=== PATIENT | female | born 1955 | race Caucasian/White ===

== ENCOUNTER → 2016-06-02 | Day surgery (SDC) | payer OTHER ==
[~2016-06-02] MED LIST: ACETAMINOPHEN PO; ADVAIR 100-501 EAC1 INH; ADVAIR 100-501 EAC1 PO/SL; ADVAIR 100-501 EACH INH; ADVAIR 1001 DISK W/D PO; ADVAIR 2501 DISK W/D PO; ASPIRIN EC81 M1 PO; ASPIRIN PO; BAYER CHEWABLE81 MG PO; CARAFATE1 G PO; CARDIZEM PO; CERTAGEN PO; COLACE PO; CRESTOR PO; CYMBALTA PO; DEPAKOTE ER PO; DEPAKOTE PO; DEPAKOTE250 MG PO; DICYCLOMINE HCL20 MG PO; DILTIAZEM 24HR120 M1 PO; DOLOPHINE HCL5 MG PO; DULOXETINE HCL60 MG PO; ESTRADIOL-NORE1 EAC1 PO; ESTRADIOL-NORE1 EACH PO; FIORINAL 50-321 EACH PO; HYDROCODON-ACE1 EAC9 PO; KADIAN20 MG PO; LEXAPRO PO; LYRICA75 MG PO; MAXALT MLT10 MG/TAB PO; METHADOSE5 MG PO; METRONIDAZOLE PO; MIRALAX255 GM PO; NORCO 10-325 TA1 TAB PO; NORCO PO; NORCO1 TAB 10/3 PO; OMEPRAZOLE40 MG PO; PANTOPRAZOLE SO40 MG PO; PERCOCET 5/321 UDTAB PO; PHENERGAN25 M1 PO; PLAVIX PO; PRAVACHOL80 MG PO; PRAVASTATIN SOD40 MG PO; PROTONIX PO; RELPAX40 MG PO; STADOL; STADOL NASAL SPRAY; STADOL NS25 MG; STADOL NS25 MG IH; TOPAMAX; TOPAMAX PO; TOPIRAMATE50 MG PO; TRAZODONE PO; VIMPAT 100 MG; VITAMIN D250000 UNIT PO; [UNRECOGNIZED DRUG - OTHER]
--- NOTE | ~2016-06-02 | OR ---
Unit #: [id number] #: [id number] Patient: MADAN FLORES [id number] [address] [address] [id number] O MR#: [id number] NAME: MADAN FLORES ROOM: Date of Procedure: 06/02/2016 Admission Date: 06/02/2016 Surgeon: Rodri Vazquez M.D. : 1955 Attending Physician: Rodri Vazquez M.D. Primary Care Physician: Mark Ball M.D. OPERATIVE REPORT JOB NOTE: FIRST NAME UNDECIPHERABLE. PROCEDURE PERFORMED Esophagogastroduodenoscopy with biopsy. INDICATIONS FOR PROCEDURE The patient has significant epigastric and right upper quadrant pain. MEDICATIONS Monitored anesthesia. POSTOPERATIVE FINDINGS 1. Multiple gastric antral ulcers, 4 to 6 mm, superficial biopsies taken. 2. Normal duodenum and distal duodenum. 3. Gastritis. 4. Normal esophagus. PLAN PPI therapy. Avoid NSAIDs. Follow up on the pathology report. DESCRIPTION OF PROCEDURE The patient was explained of the procedure, risks, and benefits along with the risks and benefits of anesthesia. She was brought to the endoscopy room. Propofol anesthesia was given. Bite block was placed. The scope was passed down the mouth into esophagus, stomach, duodenum, and distal duodenum. Findings as described. Biopsies taken. Gently, I pulled the scope out. She tolerated it well. Dictated by... Joshua Leyva/yuliya TD: 06/03/2016 04:47 JOB #: [id number] Unit #: [id number] #: [id number] Patient: MADAN FLORES OPERATIVE REPORT X Rodri Vazquez MD X PROCEDURE OPERATIVE NOTE
== END | disposition home or self-care (01) ==
LOC: COPS 10:14
DX: K29.50 Unspecified chronic gastritis without bleeding (principal); I10 Essential (primary) hypertension; J45.909 Unspecified asthma, uncomplicated; D64.9 Anemia, unspecified; K21.9 Gastro-esophageal reflux disease without esophagitis; Z87.01 Personal history of pneumonia (recurrent); Z87.442 Personal history of urinary calculi; Z88.8 Allergy status to other drugs, medicaments and biological substances; Z79.899 Other long term (current) drug therapy; Z90.49 Acquired absence of other specified parts of digestive tract; Z90.710 Acquired absence of both cervix and uterus; Z98.51 Tubal ligation status; Z98.890 Other specified postprocedural states
CPT/HCPCS: 88305; 88312

== ENCOUNTER 2016-08-07 11:47 | Inpatient (IN) | payer OTHER ==
--- NOTE | ~2016-08-07 | CT2 ---
[facility] A Service [facility] RADIOLOGY TEXT RESULTS PATIENT: MADAN FLORES LOCATION: [facility] 309- : 59 UNIT #: [id number] AGE: [address]: FRANCISCO MONTGOMERY MD SEX: F ORDER DR: [id number] [facility]. [place], [place] [address] [id number] MR#: [id number] Acc #: [id number] NAME: MADAN FLORES. : 1955 SEX: F STUDY DATE/TIME: 08/07/2016 UNIT: [facility] ROOM: STUDY DESCRIPTION: CT Abd and Pelv W Cont Attending Physician: Sanaz Goodman M.D. Ordering Physician: Sanaz Goodman M.D. Primary Care Physician: Mark Ball M.D. MEDICAL IMAGING REPORT This report is preliminary unless electronic signature is present EXAM CT abdomen and pelvis with contrast 08/07/2016 11 o'clock hours HISTORY 60-year-old woman with [id number] abdominal pain, passing blood per rectum today. COMPARISON CT abdomen 11/02/[address] images were obtained from the lung bases through the pubic symphysis with intravenous contrast only. Sagittal and coronal reconstructions were performed. Contrast was Isovue-370 100 mL IV. Total DLP is 699 mGy-cm. The CT exam was performed with one or more of the following radiation dose reduction techniques: automatic exposure control, adjustment of mA and/or kV according to patient size, and iterative reconstruction. FINDINGS Images through the lung bases are clear. There are no effusions. The distal esophagus is normal. Images through the abdomen are compromised by the lack of oral contrast. The liver and spleen appear normal. There is mild intra and extrahepatic bile duct dilatation. Patient has had cholecystectomy since the CT of 11/02/2015. Common bile duct measures up to 1.3 cm previously 0.6 cm. This dilatation can be seen normally in post cholecystectomy patients but correlation with lab values is recommended. The pancreas and pancreatic duct are normal. The adrenal glands are normal. [facility] A Service of [facility] & [facility] RADIOLOGY TEXT RESULTS PATIENT: MADAN FLORES LOCATION: A 309-01 : [birth year] UNIT #: [id number] AGE: [address]: FRANCISCO MONTGOMERY MD SEX: F ORDER DR: There is cortical thinning and scarring right greater than left kidney with nonobstructing intrarenal calcifications in the right kidney unchanged. There is no ureteral calculus seen. I believe there is a stable calcification in the lower pole left kidney partially obscured by contrast on this exam. Pelvic phleboliths are unchanged. The stomach is somewhat contracted and unopacified but does appear normal. There is no small bowel distension or small bowel wall thickening. The terminal ileum is normal. The appendix is surgically absent. The right colon appears normal. There is suggested wall thickening of the mid transverse colon and diffusely through the descending colon with question thickening at the sigmoid colon. There is no fluid, abscess or perforation. The findings suggest an infectious or inflammatory colitis which spares the rectum. There is no abscess or adenopathy. IMPRESSION 1. The patient has wall thickening of the colon fairly contiguously from the mid transverse colon to the sigmoid colon suggesting an infectious or inflammatory colitis which spares the rectum. There is no marsha colonic fluid or abscess or evidence of perforation. 2. The patient has had cholecystectomy since the CT of 11/02/2015. There is new intra and extrahepatic bile duct dilatation without definite stone seen. This can be seen in post cholecystectomy patients as a normal finding. Suggest correlation with lab values, however. 3. There is scarring in both kidneys, right worse than left with no change in intrarenal nonobstructing stones. No ureteral calculi are seen. Dictated by... Gianna Cordova M.D. THIS IS AN ELECTRONICALLY VERIFIED REPORT Gianna Cordova M.D. at 08/07/2016 2:30 PM ETHAN/pearl TD: 08/07/2016 11:47 JOB #: [id number] MEDICAL IMAGING REPORT Page 1 of 1 COPY
--- NOTE | ~2016-08-07 | CO ---
Unit #: [id number] #: [id number] Patient: MADAN HERNANDEZ [id number] [facility]. [place], [place] [address] [id number] I MR#: [id number] NAME: MADAN HERNANDEZ ROOM: 309 Age: 60 Sex: F Admission Date: 08/07/2016 : 1955 Attending Physician: Autumn Navarro M.D. Primary Care Physician: Mark Ball M.D. Consultation Date: 08/07/2016 CONSULTATION REPORT PRIMARY CARE PHYSICIAN Dr. Ball. REASON FOR CONSULTATION GI bleeding. HISTORY OF PRESENTING ILLNESS Ms. Hernandez is a 60-year-old female, presented with acute abdominal pain and blood in the stool that started within the last 24 hours. She has several bowel movements with bright red blood and clot within a period of few hours of starting of the symptoms. She has never had any similar problems in the past. She denies any new medications. She has significant nausea, but no vomiting. She denies any fever or chills. Pain was generalized, more so in the upper abdomen and with some radiation to the back. PAST MEDICAL HISTORY Significant for hypertension, depression, recent history of peptic ulcer disease, chronic pain syndrome and fibromyalgia, history of colon polyps in 2013, history of gastric ulcers in 2016. SOCIAL HISTORY Denies alcohol. Denies drug abuse. Nonsmoker. FAMILY HISTORY No history of colon cancer. ALLERGIES To Lipitor, naproxen, and Dilantin. MEDICATIONS AT HOME Lyrica, Pravachol, Cymbalta, and Fiorinal. REVIEW OF SYSTEMS A complete review of systems was done, which is unremarkable other than as mentioned above. PHYSICAL EXAMINATION GENERAL: Appears uncomfortable, in no acute distress. VITAL SIGNS: Stable. Temperature 98, pulse 68, respirations 20, blood pressure 142/66. HEENT: Pupils equal and reactive. Sclerae anicteric. Oral mucosa moist. NECK: No JVD. No lymphadenopathy. CHEST: Clear to auscultation bilaterally. Unit #: [id number] #: [id number] Patient: MADAN HERNANDEZ CARDIOVASCULAR: Regular rate and rhythm. No murmurs. ABDOMEN: Significant tenderness in the upper abdomen. No guarding. No rebound. No organomegaly or ascites. EXTREMITIES: Without clubbing, cyanosis, or edema. NEUROLOGIC: Intact. SKIN: Warm and dry. DIAGNOSTIC STUDIES LABORATORY RESULTS: Hemoglobin of 14.4, platelet count 228. Alkaline phosphatase 104, ALT 41. Ammonia level 85. Amylase and lipase normal. AST 31. IMAGING STUDIES: CT scan shows significant thickening of transverse, descending, and sigmoid colon. CBD dilated at 1.3 cm. The patient had a cholecystectomy last year. ASSESSMENT AND PLAN 1. The patient with acute abdominal pain, associated with blood in the stool, suggestive of possible ischemic colitis. Other colitis cannot be ruled out. At this time, we will get stool studies and plan on giving her symptomatic treatment, IV fluids, and broad-spectrum antibiotics. Once the symptoms come down, colonoscopy will be planned. 2. Dilated progressive common bile duct dilation along with LFT abnormality. Possible distal common bile duct obstruction. The patient does not drink alcohol. Has no history of hepatitis C. May need ERCP versus MRCP. We will wait until the acute symptoms subside. 3. History of peptic ulcer disease. PPIs to continue. Repeat upper endoscopy for surveillance has been planned. Thank you Dr. Jeffries for this interesting consult. We will follow along. Dictated by... Joshua Leyva/yuliya TD: 08/07/2016 19:59 JOB #: [id number] CONSULTATION REPORT Page 1 of 1 X Rodri Vazquez MD X CONSULTATION REPORT
--- NOTE | ~2016-08-07 | DS ---
Unit #: [id number] #: [id number] Patient: MADAN FLORES [id number] [address] [address] [id number] I MR#: [id number] NAME: MADAN FLORES. ROOM: 309 Age: 60 Sex: F Admission Date: 08/07/2016 : 1955 Discharge Date: 08/10/2016 Attending Physician: Autumn Navarro M.D. Primary Care Physician: Mark Ball M.D. DISCHARGE SUMMARY DISCHARGE DIAGNOSES 1. Acute colitis. 2. Low rectal bleed secondary to acute colitis. 3. Sepsis secondary to colitis, resolved. 4. History of migraine. 5. Hypertension. 6. Depression. 7. Hyperlipidemia. 8. Chronic pain. 9. Fibromyalgia. CONSULTANTS Dr. Vazquez. PROCEDURES PERFORMED None. DIAGNOSTIC DATA LABORATORY: Sodium 142, potassium 4.3, creatinine 0.8. Liver enzymes normal. Albumin 3.8, white blood cell count 4.4, hemoglobin 12.8, platelets 200. C-diff negative. Blood cultures negative. Lactic acid 1.1. Lactic acid on admission 2.1. ALLERGIES Phenytoin, atorvastatin. DISCHARGE MEDICATIONS 1. Lyrica 75 mg p.o. b.i.d. 2. Cymbalta 60 mg daily. 3. Pravachol 80 mg daily. 4. Fiorinal 1 capsule p.o. daily for migraine. 5. Flagyl 500 mg t.i.d. for 1 week. 6. Protonix 40 mg p.o. daily. HOSPITAL COURSE The patient is a 60-year-old admitted because of abdominal pain. Acute colitis: The patient was seen by Dr. Vazquez. The patient was started on Rocephin and Flagyl. Currently pain is better. Able to tolerate diet okay. The patient will be discharged on Flagyl for one week according to Dr. Vazquez's recommendations. He will follow with Dr. Vazquez in three weeks time for followup, if needed colonoscopy as an outpatient. Unit #: [id number] #: [id number] Patient: MADAN FLORES GI bleed: Secondary to acute colitis, resolved. Sepsis: From colitis. Resolved. Hypertension: Mildly elevated. The patient is not on medications at home. Her blood pressure was elevated one time only, likely from pain. I will ask her to follow up with her primary care physician and start medication for it if needed, if chronically elevated. DISPOSITION Discharge home. FOLLOWUP 1. Follow up with family physician in one week time. 2. Follow up with Dr. Vazquez in two to three weeks time. Dictated by... Joshua Miranda/gz TD: 08/10/2016 11:48 JOB #: [id number] CC: Mark Ball M.D. DISCHARGE SUMMARY Page 1 of 1 X Autumn Navarro MD X DISCHARGE SUMMARY
--- NOTE | ~2016-08-07 | HP ---
Unit #: [id number] #: [id number] Patient: MADAN FLORES [id number] [address] [place], [place] [address] [id number] E MR#: [id number] NAME: MADAN FLORES ROOM: Age: 60 Sex: F Admission Date: 08/07/2016 : 1955 Attending Physician: Sanaz Goodman M.D. Primary Care Physician: Mark Ball M.D. HISTORY AND PHYSICAL CHIEF COMPLAINT GI bleed. HISTORY OF PRESENT ILLNESS The patient is a 60-year-old female with a history of hypertension, migraine headache, depression, chronic pain syndrome, brought to the emergency room complaining of the rectal bleeding. The patient stated the bleeding started earlier this morning and is associated with bright red bleed to dark red blood on the stools. The patient also complains of abdominal pain that is stabbing in nature and severe intensity and radiating from the left upper quadrant to the right upper quadrant. The patient also complains of nausea and vomiting associated with the abdominal pain. The patient had a CT of the abdomen and pelvis that showed large bowel wall thickening from the transverse to the sigmoid colon and is concerning for colitis likely secondary to infectious versus inflammatory. The patient is being admitted for the above reasons. The patient's lactic acid is back up to 2.1. PAST MEDICAL HISTORY History of migraine, hypertension, depression, hyperlipidemia, chronic pain syndrome, fibromyalgia. PAST SURGICAL HISTORY History of colonoscopy seven years ago with the polyp removed, right elbow surgery, appendectomy, hysterectomy, bilateral carpal tunnel release, bilateral tubal ligation, C-spine fusion, oral surgery and the patient had cholecystectomy back in November of last year and then followed with upper endoscopy on July 31, 2016. SOCIAL HISTORY The patient lives with her . She is a lifelong nonsmoker. She does not drink alcohol or any illicit drug abuse. FAMILY HISTORY Positive for coronary artery disease. ALLERGIES Lipitor, Naprosyn and Dilantin. HOME MEDICATIONS 1. Fiorinal. 2. Cymbalta. 3. Pravachol. 4. Lyrica. Unit #: [id number] #: [id number] Patient: MADAN FLORES A REVIEW OF SYSTEMS A 14-point review of systems was performed and the only pertinent positive findings are as described above, remaining are negative. PHYSICAL EXAMINATION GENERAL APPEARANCE: The patient is lying on a bed, not in acute distress. VITAL SIGNS: Temperature 98.8. Pulse 68. Respiratory rate 20. Blood pressure 142/66. Sating 100% at room air. HEENT: Head: Atraumatic, normocephalic. ENT: Pupils equal, round and reactive to light and accommodation. Extraocular movements are intact. Dry mucous membrane. NECK: Supple. LUNGS: Decreased air entry at the bases. HEART: Regular rate and rhythm. ABDOMEN: Soft. Positive bowel sounds. Abdominal tenderness mainly in the epigastric region to the left lower quadrant. EXTREMITIES: No cyanosis. No clubbing. NEUROLOGIC: Awake, alert, oriented. No gross focal motor deficit. DIAGNOSTIC STUDIES LABORATORY: Glucose 123, BUN 19, creatinine 0.9, sodium 139, potassium 3.7, chloride 102, bicarb 20, calcium 9.8, total protein 7, albumin 4.6, total bilirubin 0.6, AST 31, ALT 41, alkaline phosphatase 104. Lactic acid 2.1. INR 0.9. WBC 13.7, hemoglobin 14.4, hematocrit 43.1, neutrophils 90.5. IMAGING: CT of the abdomen and pelvis that showed the patient has wall thickening of the colon fairly contiguously from the mid transverse colon to the sigmoid colon suggesting an infectious or inflammatory colitis which spares the rectum. There is no pericolonic fluid or abscess. ASSESSMENT 1. Colitis. 2. Rectal bleed. 3. Sepsis. PLAN Admit the patient to inpatient, telemetry, IV fluids, bowel rest, IV antibiotics with Rocephin and Flagyl, pain control with morphine, GI consult with Dr. Vazquez, has seen in the past, follow the sepsis protocol and further recommendations will follow. Dictated by Joshua Jalloh TD: 08/07/2016 13:29 JOB #: [id number] Unit #: [id number] #: [id number] Patient: MADAN FLORES HISTORY AND PHYSICAL Page 1 of 1 X X HISTORY AND PHYSICAL
[2016-08-07 11:05] LABS: BASOPHIL% 0.1 % (0-2.5); EOSINOPHIL% 0.1 % (0.0-7.0); HEMATOCRIT 43.1 % (35.0-45.0); HEMOGLOBIN 14.4 gm/dL (12.0-16.0); LYMPHOCYTE# 0.7 X10e3 (1.0-3.5); LYMPHOCYTE% 4.9 % (17.0-45.0); MEAN CELL VOLUME 88.4 FL (83-96); MEAN CORPUSCULAR HEMOGLOBIN 29.5 PG (28-34); MEAN CORPUSCULAR HGB CONC 33.4 g/dL (30-36); MEAN PLATELET VOLUME 9.9 FL (6.5-11.5); MONOCYTE# 0.6 X10e3 (0-1.0); MONOCYTE% 4.4 % (3.0-12.0); NEUTROPHIL# 12.4 X10e3 (1.5-7.1); NEUTROPHIL% 90.5 % (40-75); PLATELET COUNT 228 X10e3 (140-420); RED BLOOD COUNT 4.88 X10e (3.90-5.30); RED CELL DISTRIBUTION WIDTH 13.2 % (11.0-15.5); WHITE BLOOD COUNT 13.7 X10e3 (4.0-10.5)
[2016-08-07 11:12] LABS: DIFF IND NO
[2016-08-07 11:18] LABS: INR 0.9; PROTHROMBIN TIME (PATIENT) 9.6 SECONDS (9.6-11.5)
[2016-08-07 11:40] LABS: ALBUMIN SERUM 4.6 g/dL (3.5-5.0); ALKALINE PHOSPHATASE 104 U/L (32-92); ALT (SGPT) 41 U/L (10-40); AST (SGOT) 31 U/L (10-42); BILIRUBIN,TOTAL 0.6 mg/dL (0.2-2.0); BLOOD UREA NITROGEN 19 mg/dL (9-23); BUN/CREATININE RATIO 21.11; CALCIUM SERUM 9.8 mg/dL (8.4-10.2); CARBON DIOXIDE 20 mmol/L (22-31); CHLORIDE 106 mmol/L (100-111); CREATININE SERUM 0.9 mg/dL (0.6-1.4); GLOM FILT RATE Estimated 70.5 mL/min (>60); GLUCOSE FASTING 123 mg/dL (70-110); POTASSIUM 3.7 mmol/L (3.5-5.1); SODIUM 139 mmol/L (135-145)
[2016-08-07 11:41] LABS: BILIRUBIN, DIRECT <0.1 mg/dL (0.0-0.2); BILIRUBIN,INDIRECT 0.5 mg/dL (0.0-0.9)
[~2016-08-07 11:47] MED LIST changes: -ACETAMINOPHEN PO; -ADVAIR 100-501 EACH INH; -FIORINAL 50-321 EACH PO; -METRONIDAZOLE PO; -NORCO PO; -PERCOCET 5/321 UDTAB PO
[2016-08-07] MEDS ORDERED: LYRICA75 MG PO (12:01)
[2016-08-07] MEDS ORDERED: PRAVACHOL80 MG PO (12:01)
[2016-08-07] MEDS ORDERED: FIORINAL 50-321 EACH PO (12:01)
[2016-08-07] MEDS ORDERED: DULOXETINE HCL60 MG PO (12:01)
[2016-08-07 12:36] LABS: POC - CREATININE 1.12 mg/dL (0.44-1.03)
[2016-08-08 05:36] LABS: HEMATOCRIT 39.1 % (35.0-45.0); HEMOGLOBIN 12.6 gm/dL (12.0-16.0); MEAN CELL VOLUME 91.1 FL (83-96); MEAN CORPUSCULAR HEMOGLOBIN 29.5 PG (28-34); MEAN CORPUSCULAR HGB CONC 32.3 g/dL (30-36); MEAN PLATELET VOLUME 9.8 FL (6.5-11.5); RED BLOOD COUNT 4.29 X10e (3.90-5.30); RED CELL DISTRIBUTION WIDTH 13.5 % (11.0-15.5)
[2016-08-08 05:38] LABS: WHITE BLOOD COUNT 5.9 X10e3 (4.0-10.5)
[2016-08-08 06:54] LABS: ALBUMIN SERUM 3.7 g/dL (3.5-5.0); BILIRUBIN,TOTAL 0.7 mg/dL (0.2-2.0); BUN/CREATININE RATIO 11.42; CALCIUM SERUM 8.6 mg/dL (8.4-10.2); CREATININE SERUM 0.7 mg/dL (0.6-1.4); GLOM FILT RATE Estimated 95.5 mL/min (>60); POTASSIUM 4.1 mmol/L (3.5-5.1); PROTEIN TOTAL SERUM 5.7 g/dL (6.0-8.3)
[2016-08-10 06:17] LABS: HEMATOCRIT 39.2 % (35.0-45.0); HEMOGLOBIN 12.8 gm/dL (12.0-16.0); MEAN CELL VOLUME 89.7 FL (83-96); MEAN CORPUSCULAR HEMOGLOBIN 29.3 PG (28-34); MEAN CORPUSCULAR HGB CONC 32.7 g/dL (30-36); MEAN PLATELET VOLUME 9.5 FL (6.5-11.5); RED BLOOD COUNT 4.37 X10e (3.90-5.30); RED CELL DISTRIBUTION WIDTH 12.8 % (11.0-15.5); WHITE BLOOD COUNT 4.4 X10e3 (4.0-10.5)
[2016-08-10 07:32] LABS: ALBUMIN SERUM 3.8 g/dL (3.5-5.0); BILIRUBIN,TOTAL 0.4 mg/dL (0.2-2.0); BUN/CREATININE RATIO 7.5; CALCIUM SERUM 9.2 mg/dL (8.4-10.2); CREATININE SERUM 0.8 mg/dL (0.6-1.4); GLOM FILT RATE Estimated 81.3 mL/min (>60); POTASSIUM 4.3 mmol/L (3.5-5.1); PROTEIN TOTAL SERUM 5.7 g/dL (6.0-8.3)
[2016-08-10] MEDS ORDERED: PROTONIX PO (11:40)
[2016-08-10] MEDS ORDERED: METRONIDAZOLE PO (11:41)
[2016-08-29] MEDS ORDERED: TOPAMAX PO (15:52)
[2016-10-04] MEDS ORDERED: NORCO PO (14:58)
[2016-10-05] MEDS ORDERED: ADVAIR 100-501 EACH INH (06:20)
[2016-10-05] MEDS ORDERED: TOPAMAX (06:20)
== END 2016-08-10 13:30 | disposition home or self-care (01) | DRG 872 ==
LOC: CED 11:47 → CEDOF 12:05 → C3A PCU 14:08
PROVIDERS: Emergency Medicine; Internal Medicine
DX: A41.9 Sepsis, unspecified organism (principal); K83.8 Other specified diseases of biliary tract; I10 Essential (primary) hypertension; G89.4 Chronic pain syndrome; G43.909 Migraine, unspecified, not intractable, without status migrainosus; F32.9 Major depressive disorder, single episode, unspecified; E78.5 Hyperlipidemia, unspecified; M79.7 Fibromyalgia; Z90.49 Acquired absence of other specified parts of digestive tract; Z98.51 Tubal ligation status; Z87.11 Personal history of peptic ulcer disease; Z86.010 Personal history of colon polyps; K52.9 Noninfective gastroenteritis and colitis, unspecified
CPT/HCPCS: 36415; 74177; 80048; 80053; 80076; 82565; 83605; 85025; 85027; 85610; 85730; 87040; 87493; 96365; 96375; 96376; 99285; C9113; J0696; J1170; J1650; J2270; J2405; J2543; Q9967

== ENCOUNTER 2016-08-30 13:48 | Inpatient (IN) | payer OTHER ==
--- NOTE | ~2016-08-30 | HP ---
Unit #: [id number] #: [id number] Patient: MADAN FLORES [id number] [address] [address] [id number] I MR#: [id number] NAME: MADAN FLORES. ROOM: 52782 Age: 61 Sex: F Admission Date: 08/30/2016 : 1955 Attending Physician: Agnieszka Vásquez M.D. Primary Care Physician: Mark Ball M.D. HISTORY AND PHYSICAL REVISED REPORT CHIEF COMPLAINT Acute pancreatitis. HISTORY OF PRESENT ILLNESS This pleasant 61-year-old female with migraines, fibromyalgia, hyperlipidemia, and intra and extrahepatic biliary dilatation, is admitted for pancreatitis following an ERCP. The patient underwent an ERCP today and the duct could not be cannulated. She went home and developed fairly severe abdominal pain radiating to her back associated with nausea, vomiting and weakness. She presented to this emergency department this afternoon. She was given a liter of saline, Dilaudid and Zofran. However, her systolic blood pressure dropped into the 80s after Dilaudid. She therefore received 2 more liters of saline and Percocet. She is still in significant pain but not as severe as before. A call was made to Dr. Vazquez who asked that the patient be admitted to the intensive care unit, and Unasyn be administered. PAST MEDICAL HISTORY 1. Migraine headaches. 2. Hypertension. 3. Depression. 4. Hyperlipidemia. 5. Chronic pain syndrome. 6. Fibromyalgia. 7. Admission 08/07/2016 for colitis. 8. Peptic ulcer disease, diagnosed 2015. 9. Polyps in the colon which were removed in 2012. 10. Right elbow surgery. 11. Appendectomy. 12. Hysterectomy. 13. Bilateral carpal tunnel release. 14. BTL. 15. C-spine fusion. 16. Oral surgery. 17. Cholecystectomy. ALLERGIES 1. Lipitor. 2. Naprosyn. 3. Dilantin. Unit #: [id number] #: [id number] Patient: MADAN FLORES HOME MEDICATIONS 1. Lyrica 75 mg b.i.d. 2. Cymbalta 60 mg daily. 3. Pravachol 80 mg daily. 4. Fiorinal p.r.n. 5. Protonix 40 mg. SOCIAL HISTORY The patient lives with her and two children along with her disabled father. She is a lifelong nonsmoker, does not drink alcohol. FAMILY HISTORY CAD. REVIEW OF SYSTEMS Notable for nausea, vomiting, abdominal pain radiating to the back, migraines, hypertension, depression, hyperlipidemia, chronic pain, fibromyalgia, peptic ulcer disease, polyps in the colon, colitis, and above-mentioned surgeries. Also some carotid stenosis. All other systems were reviewed and are negative. PHYSICAL EXAMINATION VITAL SIGNS: Temperature 97.5, pulse 83, respirations 18, blood pressure 108/93, O2 saturation 98% on room air. GENERAL: Pleasant, uncomfortable-appearing 61-year-old female. HEENT: Eyes PERRLA. Extraocular muscles are intact. Pharynx benign. NECK: Supple without adenopathy or thyromegaly. CHEST: Clear. HEART: Normal S1, S2 without S3, S4 or murmur. ABDOMEN: Bowel sounds are hypoactive. Patient has generalized abdominal tenderness which localizes to the epigastric and right upper quadrant but the abdomen is soft and there is no rebound. EXTREMITIES: Without clubbing, cyanosis, or edema. Pedal pulses are present. NEUROLOGIC: Awake, alert, oriented. Cranial nerves are intact. Equal strength throughout. DIAGNOSTIC STUDIES LABORATORY: Hematocrit 49.5, white blood cell count 17.2, normal platelet count. SMA-12 glucose 127, CO2 is 18, amylase 5000, lipase 8300. Urinalysis trace leukocyte esterase without significant wbc's or rbc's. IMAGING: CT scan shows moderate to severe acute pancreatitis. No drainable fluid collection. Evidence of duodenitis which could be related to acute pancreatitis from the adjacent pancreas. Mild ileus. Mural thickening of the colonic wall which was noted previously. ASSESSMENT 1. Acute pancreatitis status post ERCP. 2. Intra and extrahepatic biliary ductal dilatation. 3. Migraine headaches. 4. Fibromyalgia with chronic pain. 5. Hyperlipidemia. 6. Peptic ulcer disease. 7. Hypotension following IV pain medicines now resolved after IV fluids. PLAN 1. Continue aggressive IV fluids, strict I's and O's and monitor labs Unit #: [id number] #: [id number] Patient: MADAN FLORES. 2. Dr. Vazquez is consulting and he has asked for Unasyn to be started. 3. Will admit the patient to the intensive care unit tonight. 4. DVT prophylaxis. 5. Change pain medications to intramuscular route for now. Dictated by Joshua Trujillo/cs TD: 08/30/2016 21:29 JOB #: [id number] HISTORY AND PHYSICAL Page 1 of 1 X Agnieszka Vásquez MD X HISTORY AND PHYSICAL
--- NOTE | ~2016-08-30 | CT2 ---
[facility] A Service of [facility] RADIOLOGY TEXT RESULTS PATIENT: MADAN FLORES LOCATION: [facility] 565-01 : 59 UNIT #: [id number] AGE: [address]: Donny Silva MD SEX: F ORDER DR: [id number] [facility] [address] [facility]. [place], [place] [address] [id number] I MR#: [id number] Acc #: [id number] NAME: MADAN FLORES : 1955 SEX: F STUDY DATE/TIME: 09/03/2016 12:13 UNIT: [facility] ROOM: [facility] STUDY DESCRIPTION: CT Abd and Pelv W Cont Attending Physician: Donny Silva M.D. Ordering Physician: Rodri Vazquez M.D. Primary Care Physician: Mark Ball M.D. MEDICAL IMAGING REPORT This report is preliminary unless electronic signature is present EXAM CT abdomen and pelvis with IV contrast COMPARISON August 30, 2016. INDICATION 61-year-old female with diffuse abdominal pain generalized tenderness for 1 day. Failed ERCP on September 02, 2016. Diagnosis of acute pancreatitis. TECHNIQUE This CT exam was performed with one or more of the following radiation dose reduction techniques: automatic exposure control, adjustment of mA and/or kV according to patient size, and iterative reconstruction. Approximately 100 mL of Isovue-370 were administered intravenously for this exam. This was followed by axial CT imaging of the abdomen and pelvis. Coronal and sagittal reformats were constructed. FINDINGS There is increasing diffuse subcutaneous edema. There are new small bilateral pleural effusions with compressive enhancing attenuation in both lower lobes most consistent with atelectasis. There is slight increased perihepatic ascites with new perisplenic ascites. There are a grossly stable amount of free fluid in the pelvis. Bilateral pericolic gutter fluid also noted. No pneumoperitoneum. No acute fractures or suspicious osseous lesions. Changes of cholecystectomy again noted. Liver, spleen, and adrenal glands are unremarkable. Multifocal scarring versus persistent lobulation of the right kidney. There are bilateral nonobstructive renal calculi. There is stable mild diffuse distension of the ureters, perhaps reactive to inflammatory changes along the pericolic gutters and in the pelvis. Urinary bladder wall appears increasingly indistinct but is normal in thickness. This may be reactive to inflammatory changes of pancreatitis, transmitted into the pelvis. Prior STS. [facility] A Service of [facility] RADIOLOGY TEXT RESULTS PATIENT: MADAN FLORES LOCATION: [facility] 565-01 : 59 UNIT #: [id number] AGE: [address]: Donny Silva MD SEX: F ORDER DR: hysterectomy. Bilateral pelvic phleboliths. No definite adnexal masses. Ingested contrast reaches the rectum. The pancreas appears less edematous than 4 days ago. There is persistent dilatation of the common bile duct, grossly unchanged from November 02, 2015. This measures up to approximately 7 mm. No definite obstructing lesion is seen. Actually, the dilatation of the common bile duct has diminished from 4 days ago. This was likely secondary to inflammatory change of the pancreas. There are no hypoattenuating areas in the pancreas to suggest pancreatic necrosis at this time. Diffuse thickening of the ascending and transverse duodenum is grossly stable to mildly improved from 4 days ago, but new from August 07, 2016. This likely represents a secondary duodenitis due to acute pancreatitis. There is increased diffuse thickening of the colon suggesting a pancolitis. This is new from 4 days ago. Abdominal aorta is normal in course and caliber. There are calcifications at the origins of the celiac and superior mesenteric arteries, likely with mild stenosis at the origins of both vessels. Also calcifications at the origins of both renal arteries, without evidence of significant stenosis. No evidence of venous thrombosis. Simple right adnexal cyst measuring up to 1.4 cm. No suspicious adenopathy. IMPRESSION 1. There is persistent pancreatic edema which has significantly improved from 4 days ago. Diffuse dilatation of the common bile duct is also improved and the common bile duct caliber, now appears stable going back to October 2015. This measures up to approximate 7 mm and is likely a normal finding post cholecystectomy. 2. The most significant change from 4 days ago and is that there is now diffuse thickening of the entire colon with quite marked edema and the findings are concerning for a pancolitis. Depending on the length of antibiotic therapy, this could possibly reflect a C. difficile colitis. Differential diagnosis also includes an inflammatory colitis secondary to the inflammatory changes transmitted from the pancreas but given the diffuse nature, this is thought less likely. 3. Slight increased ascites in the upper abdomen as described in the body of the report. Fluid is also again noted in the pericolic gutters and layering in the pelvis. 4. Slight increased hyperemia of the bladder wall, possibly secondary to inflammatory changes transmitted to the pelvis. There is no bladder wall thickening. Correlation to exclude an acute cystitis is recommended. 5. No pneumoperitoneum. 6. New small pleural effusions with compressive atelectasis in both lung bases. 7. Diffuse new mild body wall edema. 8. Bilateral nonobstructive renal calculi. Multifocal scarring of the right kidney. STS. [facility] A Service of [facility] RADIOLOGY TEXT RESULTS PATIENT: MADAN FLORES LOCATION: [facility] 56- : 59 UNIT #: [id number] AGE: [address]: Donny Silva MD SEX: F ORDER DR: 9. Arterial calcifications of the abdomen and pelvis with mild stenosis at the origins of the celiac and superior mesenteric arteries due to calcified plaque. 10. Simple right ovarian cyst. Dictated by... Felix Whitaker M.D. THIS IS AN ELECTRONICALLY VERIFIED REPORT Felix Whitaker M.D. at 09/11/2016 8:07 AM DEIRDRE/qi TD: 09/03/2016 13:26 JOB #: [id number] MEDICAL IMAGING REPORT Page 1 of 1 COPY
--- NOTE | ~2016-08-30 | CO ---
Unit #: [id number] #: [id number] Patient: MADAN FLORES [id number] [address] [address] [id number] I MR#: [id number] NAME: MADAN FLORES ROOM: 56 Age: 61 Sex: F Admission Date: 08/30/2016 : 1955 Attending Physician: Donny Silva M.D. Primary Care Physician: Mark Ball M.D. Consultation Date: 09/07/2016 CONSULTATION REPORT REASON FOR CONSULTATION Fever. HISTORY OF PRESENT ILLNESS The patient is a 61-year-old female who appears to have a complex history and recent stay. The patient recently underwent a failed ERCP as the ducts could not be cannulated and developed some acute pancreatitis. The patient was admitted with nausea, vomiting and weakness. Since admission the patient has had also the development of diarrhea, increasing abdominal pain and is now on TPN. The patient has also had some intermittent fever as well as leukocytosis. She has also had initially a CT scan that in addition to acute pancreatitis also showed duodenitis and pancreatitis with pancolitis. The patient was started initially on Unasyn. This has been changed to Zosyn and Flagyl. The patient is now experiencing continued fever despite a CT that is showing resolution of her pancreatitis and has some swelling on her left and right feet as well as her right wrist. Infectious disease was asked to evaluate for further management. In discussion with the patient she reports that overall her abdominal pain is improving. She does still have some nausea and vomiting appears improved, but she continued to have diarrhea this morning. The patient has not had any fever this morning. However, 48 hours ago she did have a temperature of greater than 101 Fahrenheit. PAST MEDICAL HISTORY 1. Migraine headaches. 2. Hypertension. 3. Depression. 4. Hyperlipidemia. 5. Chronic pain syndrome. 6. Fibromyalgia. 7. Past colitis. 8. Peptic ulcer disease. 9. Polyps in the colon, removed in 2012. 10. Right elbow surgery. 11. Appendectomy. 12. Hysterectomy. 13. Bilateral carpal tunnel release. 14. C-spine fusion. 15. Oral surgery. 16. Cholecystectomy. SOCIAL HISTORY The patient lives with others. She denies any tobacco or alcohol abuse. Unit #: [id number] #: [id number] Patient: MADAN FLORES A ALLERGIES Lipitor, naproxen and Dilantin. CURRENT MEDICATIONS 1. Zosyn. 2. Flagyl. For further medications, please refer to the patient's MAR. REVIEW OF SYSTEMS Negative for as previously mentioned above. She does report she also has some shortness of air which is being followed by cardiology. PHYSICAL EXAMINATION GENERAL: This is a no apparent distress female who is laying in the bed. She does appear weak and somewhat short of breath. VITALS: Temperature 99.0, t-max on 09/05/2016 of 102.4, pulse 101, blood pressure 139/74, respiratory rate 16. HEENT: Her pupils are equal. NECK: Supple. LUNGS: Diminished in the bases, but no wheezes or rhonchi noted. HEART: S1 and S2 with regular rate and rhythm. ABDOMEN: Diffuse tenderness noted in all quadrants. She has hypoactive bowel sounds. She has no open wounds on her abdomen. EXTREMITIES: She has a PICC line in her right upper extremity. Her right wrist does show some erythema with decreasing range of motion along with a right forearm knot, with severe tenderness, but no induration or fluctuans. Bilateral feet, not on the palmar surface, near the toes, shows some erythema and tenderness. DIAGNOSTIC STUDIES IMAGING: Initial CT scan on admission, please see full report for complete details. In summary, the patient had moderate to severe acute pancreatitis with no findings of pancreatic necrosis. No drainable fluid collection. Status post cholecystectomy. Stable biliary duct dilatation. Mild pancreatic ductal distension. Duodenitis. Generalized ileus. Pancolitis. Most recent CT scan of the abdomen, please see full report for complete details. In summary, pancolitis, mild small bowel ileus, no abscess, pancreas is normal enhancement. No note of duodenitis. CT scan of the chest showed no PE. Small to moderate bilateral effusions with consolidation. LABORATORY: BUN 9, creatinine 0.5, sodium 138, potassium 4.0, chloride 102, CO2 29, bilirubin 0.8, AST 40, ALT 75, alkaline phosphatase 41, amylase 93 which is improved from admission of 4,977, lipase 30 which is improved from admission of 8,284. Ammonia level not done this admission. Lactic acid on admission was 2.1 and repeat was 1.1. White blood cell count is 13.1 which is improved from admission of 17,000, hemoglobin 11.3, hematocrit 34.2, platelets 277. Initial urinalysis is unremarkable. Microbiology data on 09/04/2016, blood cultures are currently negative to date. On 09/03/2016 stool cultures were negative. C-diff was negative. ASSESSMENT This is a 61-year-old female who was admitted for acute pancreatitis Unit #: [id number] #: [id number] Patient: MADAN FLORES following a failed ERCP. The patient had initial weakness, nausea and vomiting and developed diarrhea and fever since admission. The patient was diagnosed with acute pancreatitis in addition to duodenitis and pancolitis. The patient's initial c-diff colitis test was negative. Her amylase and lipase have significantly improved since admission. The patient now has intermittent fever, but white blood cell count has almost resolved back to normal. Concern may be related to new erythema that is seen on her bilateral feet and right upper extremity. Exact etiology is unclear. Unknown if this is related to her possible pancreatitis versus gout. It does not have the appearance of cellulitis. Question reactive to some of her medications. PLAN At this time would like to continue Zosyn and Flagyl. Will check a serum procalcitonin level, serum uric acid level. Will check a urine for eosinophils. Will repeat stool culture for c-diff toxin. Will check CBC in the a.m. and will have the nursing staff call with any positive blood cultures. At this point, do not feel the patient has pneumonia. Suspect her effusions are related to her pancreatitis. Will continue to follow along closely. Thank you for allowing us to participate in the care of this patient. Further recommendations to follow pending the patient's clinical course. Dictated by... Domonique Walter TD: 09/07/2016 12:35 JOB #: [id number] CONSULTATION REPORT Page 1 of 1 X X CONSULTATION REPORT
--- NOTE | ~2016-08-30 | CO ---
Unit #: [id number] #: [id number] Patient: MADAN FLORES [id number] [address] [place], [place] [address] [id number] I MR#: [id number] NAME: MADAN FLORES. ROOM: 565 Age: 61 Sex: F Admission Date: 08/30/2016 : 1955 Attending Physician: Audra Woo M.D. Primary Care Physician: Mark Ball M.D. CONSULTATION REPORT REASON FOR CONSULTATION Shortness of breath. CHIEF COMPLAINT Abdominal pain. HISTORY OF PRESENT ILLNESS This patient basically is a 61-year-old female, a never smoker, came in with the complaint of abdominal pain. Admitted with acute pancreatitis, complaining of shortness of breath this morning. I am seeing the patient at bedside. Complaining of abdominal pain, nausea. REVIEW OF SYSTEMS Positive pallor. No edema. No cyanosis. No jaundice. Rest is as per history of present illness. The rest of a 12-point review of systems has been reviewed and is negative. PAST MEDICAL HISTORY 1. Migraine. 2. Hypertension. 3. Depression. 4. Dyslipidemia. 5. Fibromyalgia. 6. Appendectomy. 7. Hysterectomy. 8. Bilateral tubal ligation. 9. Cholecystectomy. ALLERGIES Lipitor, Naprosyn, Dilantin. HOME MEDICATIONS Lyrica, Cymbalta, Pravachol, Fiorinal, Protonix. SOCIAL HISTORY Nonsmoker, no alcohol, no drug abuse. PHYSICAL EXAMINATION VITAL SIGNS: Currently her temperature is 97, pulse 82, respirations 16, blood pressure 146/72. NEUROLOGIC: Awake, alert and oriented. No neuro deficits. HEENT: PERRLA. EOMI. NECK: Supple. No JVD. CHEST: Bilateral air entry. Bilateral mild rhonchi. Unit #: [id number] #: [id number] Patient: MADAN FLORES GI: Nontender. Soft. Bowel sounds are positive. DIAGNOSTIC STUDIES Labs and imaging have been reviewed. ASSESSMENT 1. Shortness of breath. 2. Abdominal pain. 3. Acute pancreatitis. 4. Hypokalemia. PLAN Plan is to continue patient on oxygen, bronchodilator. Continue current antibiotics. Will order blood gas and portable chest x-ray. Will consider doing a CT chest PE protocol, as well. Please see orders for detailed plan. Thank you very much for this consultation. Will continue to follow along. Dictated by... Joshua Ochoa TD: 09/03/2016 12:23 JOB #: [id number] CONSULTATION REPORT Page 1 of 1 X Bam Shannon MD X CONSULTATION REPORT
--- NOTE | ~2016-08-30 | DS ---
Unit #: [id number] #: [id number] Patient: MADAN FLORES [id number] [facility]. [place], [place] [address] [id number] I MR#: [id number] NAME: MADAN FLORES. ROOM: 565 Age: 61 Sex: F Admission Date: 08/30/2016 : 1955 Discharge Date: 09/13/2016 Attending Physician: Donny Silva M.D. Primary Care Physician: Mark Ball M.D. DISCHARGE SUMMARY REASON FOR ADMISSION Acute pancreatitis. HISTORY OF PRESENT ILLNESS/HOSPITAL COURSE The patient is a 61-year-old female with underlying history of migraine, fibromyalgia, hyperlipidemia as well as intra and extrahepatic biliary dilatation. The patient was admitted for acute pancreatitis following ERCP. She had undergone an ERCP on the date of admission. The duct could not be cannulated. She went home and developed fairly severe abdominal pain radiating to her back associated with nausea, vomiting and weakness. She presented to the emergency department for evaluation. It was noted her systolic blood pressure was in the eighties after she received Dilaudid for pain control. She received appropriate normal saline bolus and subsequently was admitted to telemetry floor. Through her fairly prolonged course, Dr. Vazquez saw and evaluated the patient and continues to follow the patient as well as Dr. Kraft of [facility] off and on. She had recurrent CT scan of her abdomen and pelvis which did reveal findings consistent with pancreatitis, duodenitis as well as pancolitis. She initially was placed on TPN for nutritional support. This was gradually discontinued and she was transitioned from a clear into a regular diet. Also, of note, through hospital course, she developed acute diarrhea while receiving Unasyn and/or Zosyn and we felt as though she did develop some sort of an allergic reaction to penicillin. Once medications similar to penicillin were discontinued, her diarrhea did resolve. She did undergo a C. difficile toxin evaluation which was negative through this hospital course. Secondary to increased work of breathing as well as clinical concern and elevated white count, possible underlying sepsis, the patient did undergo a CTA chest on 09/04/2016. It did reveal small to moderate bilateral fusions and this subsequently prompted a consultation from Dr. Shannon. He followed the patient as well as through hospital course. No acute thoracentesis was performed but appropriate volume management was achieved. At the present time, the patient currently is on two liters of O2. There may be some dependent atelectasis which has developed secondary to her prolonged hospital course. We will do an oxygen evaluation prior to discharge. Unit #: [id number] #: [id number] Patient: MADAN FLORES After review with Dr. Vazquez, who is currently out of town, via phone, as well as a discussion with Dr. Kraft from [facility], both have recommended the patient have an outpatient ERCP for evaluation of intra and extrahepatic ductal abnormalities. This will be followed Dr. Vazquez as an outpatient. At this point in time, the patient's pain is significantly improved. She is tolerating a p.o. diet and is currently stable on p.o. pain medications and appears stable for discharge home. FINAL DISCHARGE DIAGNOSES 1. Acute pancreatitis. 2. Duodenitis. 3. Pancolitis. 4. Hypotension on admission. 5. Sepsis present on admission. 6. Bilateral pleural effusions now resolving. 7. Acute respiratory failure secondary to dependent atelectasis and/or bilateral pleural effusions. 8. Hypertension. 9. Migraines. 10. Depression. 11. Hyperlipidemia. 12. Chronic pain syndrome. 13. Fibromyalgia. 14. Peptic ulcer disease. 15. History of colon polyps. 16. Chronic deconditioning. FINAL DISCHARGE MEDICATIONS 1. Lyrica 75 mg p.o. b.i.d. 2. Cymbalta 60 mg p.o. q.a.m. 3. Percocet 5/325 mg one tablet p.o. q.4 p.r.n., #40. Prescription given. 4. Protonix 40 mg p.o. b.i.d. DISCHARGE CONDITION Stable. DISCHARGE DISPOSITION Home. FOLLOWUP Dr. Vazquez as an outpatient after (1) completed. Dictated by... Joshua Pond/albina TD: 09/13/2016 11:55 JOB #: [id number] Unit #: [id number] #: [id number] Patient: MADAN FLORES DISCHARGE SUMMARY Page 1 of 1 X Donny Silva MD DISCHARGE SUMMARY
--- NOTE | ~2016-08-30 | CT2 ---
[facility] A Service of [facility] RADIOLOGY TEXT RESULTS PATIENT: MADAN FLORES LOCATION: [facility] 565-01 : [birth year] UNIT #: [id number] AGE: [address]: Donny Silva MD SEX: F ORDER DR: [id number] [facility] [address] [facility]. [place], [place] [address] [id number] I MR#: [id number] #: [id number] NAME: MADAN FLORES : 1955 SEX: F STUDY DATE/TIME: 09/06/2016 16:53 UNIT: [facility] ROOM: [facility] STUDY DESCRIPTION: CT Abd and Pelv W Cont Attending Physician: Donny Silva M.D. Ordering Physician: Rodir Vazquez M.D. Primary Care Physician: Mark Ball M.D. MEDICAL IMAGING REPORT This report is preliminary unless electronic signature is present EXAM CT abdomen and pelvis with contrast DATE: 09/06/2016 HISTORY 61-year-old female with new fever. The patient states generalized abdominal pain across middle of the abdomen since 08/30/2016. History of pancreatitis. Additional history of hypertension and heart murmur. Previous tubal ligation, appendectomy, hysterectomy, lithotripsy, cholecystectomy. COMPARISON CT abdomen and pelvis with contrast 09/03/2016. CT chest PE protocol 09/04/2016. PROCEDURE 5 mm axial images from the lung bases through the lesser trochanters after intravenous and enteric contrast administration. Sagittal and coronal reformatted images were obtained. This CT exam was performed with one or more of the following radiation dose reduction techniques: automatic exposure control, adjustment of mA and/or kV according to patient size, and iterative reconstruction. FINDINGS ABDOMEN: There is diffuse abnormal thickening and inflammatory change involving the colon, greatest in the ascending and transverse segments. There is mild enhancement and air-fluid distension of a few small bowel loops. Findings are thought to most likely represent changes of diffuse enterocolitis, with likely secondary reactive inflammation or mild ileus changes of the adjacent small bowel. No evidence of high-grade bowel obstruction. Small quantity of fluid is seen within the abdominal STS. [facility] A Service of [facility] RADIOLOGY TEXT RESULTS PATIENT: MADAN FLORES LOCATION: [facility] 565-01 : [birth year] UNIT #: [id number] AGE: [address]: Donny Silva MD SEX: F ORDER DR: mesentery, but no well-defined drainable fluid collection or abscess is seen. No free air or pneumatosis is evident. Small quantity perihepatic and perisplenic ascites persists, and a small to moderate right, and small left pleural effusions persist. Dense bibasilar atelectasis or consolidations not thought to be significantly changed. Cholecystectomy. The pancreatic parenchyma demonstrates normal enhancement. Mild prominence of the pancreatic duct and common bile duct, unchanged. No obstructing abnormality is seen, and this is favored to represent a normal post cholecystectomy variant. The spleen and adrenals are normal. There are nonobstructing bilateral renal stones and multifocal bilateral renal cortical thinning or scarring, right greater than left. PELVIS FINDINGS: Trace pelvic free fluid. No drainable fluid collection or abscess is seen. Pelvic ascites appears improved. Urinary bladder is normal. Hysterectomy. Rectal inflammation persists. Small right ovarian cyst measures about 1.5 cm, not thought to be significantly changed. There is mild to [id number] calcific atherosclerosis in the abdominal aorta. IMPRESSION 1. Diffuse abnormal thickening and inflammatory changes throughout the colon favored to represent infectious or inflammatory yip colitis. 2. There is mild distension and enhancement of the upper abdominal small bowel loops thought to represent secondary reactive inflammation or mild small bowel ileus, but there is no evidence of high-grade obstruction on this exam. 3. Small quantity abdominopelvic ascites. The abdominal ascites is not thought to be significantly changed although the pelvic ascites is slightly improved. No well-defined abscess is seen. 4. Small to moderate right, small left pleural effusions with dense bibasilar atelectasis or consolidations, not significantly changed. 5. Pancreas maintains normal enhancement characteristics. 6. Multifocal bilateral renal cortical scarring and nonobstructing bilateral renal stones. 7. Surgical changes of cholecystectomy, appendectomy, and hysterectomy. 8. A 1.5 cm right ovarian cyst. Dictated by... Chaya Meyers M.D. [facility] A Service of [facility] RADIOLOGY TEXT RESULTS PATIENT: MADAN FLORES LOCATION: [place] [address] : [birth year] UNIT #: [id number] AGE: [address]: Donny Silva MD SEX: F ORDER DR: THIS IS AN ELECTRONICALLY VERIFIED REPORT Chaya Meyers M.D. at 09/07/2016 10:05 AM NONI/mike TD: 09/07/2016 02:06 JOB #: [id number] MEDICAL IMAGING REPORT Page 1 of 1 COPY
--- NOTE | ~2016-08-30 | CR63 ---
[facility] A Service [facility] RADIOLOGY TEXT RESULTS PATIENT: MADAN FLORES [facility] [id number] : 59 UNIT #: [id number] AGE: [address]: Donny Silva MD SEX: F ORDER DR: [id number] [facility] [address] [place], [place] [address] [id number] MR#: [id number] #: [id number] NAME: MADAN FLORES. : 1955 SEX: F STUDY DATE/TIME: 09/03/2016 12:31 [facility] ROOM: [facility] STUDY DESCRIPTION: CR Chest 2 View Attending Physician: Audra Woo M.D. Ordering Physician: Rodri Vazquez M.D. Primary Care Physician: Mark Ball M.D. MEDICAL IMAGING REPORT This report is preliminary unless electronic signature is present EXAM 2 views of the chest COMPARISON April 19, 2016 and March 10, 2016, as well as CT abdomen and pelvis dated September 03, 2016. INDICATION 61-year-old female with dyspnea and chills for 6 days. Acute pancreatitis. FINDINGS As compared to radiograph of April 19, 2016, lung volumes are diminished. There are bilateral pleural effusions and bibasilar opacities which are new. When compared to CT performed earlier today, the lung opacities are enhancing most consistent with atelectasis. Anterior cervical fusion hardware is incompletely imaged. Visualized components appear grossly stable. There is, otherwise, bronchovascular crowding throughout the lungs secondary to low lung volumes. Right upper extremity PICC tip terminates near the cavoatrial junction. Cardiomediastinal silhouette is within normal limits. There is also band-like attenuation favored in the right middle lobe and possibly in the lingula which is consistent with atelectasis. IMPRESSION 1. Small bilateral pleural effusions with associated bibasilar compressive atelectasis. Dictated by... Felix Whitaker M.D. [facility] A Service of [facility] RADIOLOGY TEXT RESULTS PATIENT: MADAN FLORES LOCATION: [place] [address]- : 59 UNIT #: [id number] AGE: [address]: Donny Silva MD SEX: F ORDER DR: THIS IS AN ELECTRONICALLY VERIFIED REPORT Felix Whitaker M.D. at 09/10/2016 1:35 PM Ilia TD: 09/03/2016 13:22 JOB #: [id number] MEDICAL IMAGING REPORT Page 1 of 1 COPY
--- NOTE | ~2016-08-30 | FU ---
[facility] Nutrition Therapy DATE: 09/05/16 Patient: MADAN FLORES Physician: ROBERT Address: [address] [place] [address] Room/Bed: [address] [place] [address], Zip: [place] [address] Admit Date: 08/30/16 Date of : 59 Height: 5 3 Weight: 153 69.6 NUTRITION MONITORING/FOLLOW-UP: Reason: PT SEEN FOR FOLLOW-UP/TPN DX: PANCREATITIS Anthropometrics: 5'3", WT: 153# ( 70 KG), BMI: 27.1 -ADMIT WEIGHT: 150#? Labs: GLU: 143, BUN: 7, CREAT: 0.5, CA+:8.1, ALB: 2.3, AST: 87, ALT: 105, PHOS: 2.4, PRE-ALB: 7.1, AMYLASE: 93 Meds: TPN, MAG SULFATE, KCL, D5%, ZOFRAN, PROTONIX I&O's: 2490/3702, 2 BMs NOTED Skin: NO KNOWN SKIN ISSUES (PREVIOUSLY NOTED) EDEMA: BLE TRACE EDEMA Estimated Nutrition Needs: 1879-2096 KCAL 82-102 G PRO Assessment: CHART REVIEWED AND EVENTS NOTED. PT SEEN FOR TPN FOLLOW-UP. PT REPORTS FEELING NAUSEOUS TODAY, NOTING "BARELY ABLE TO TOLERATE CLEAR LIQUID DIET". PER OBSERVATION, PT ATE 100% OF BREAKFAST AND LUNCH (TRAYS IN ROOM). RD ENCOURAGED ENSURE CLEAR INTAKE, PT AGREED. OF NOTE, PT ALSO RECEIVING TPN 25% DEXTROSE, 5% AA @ 60 ML/HR + NO LIPIDS. PER RN AND CHART, PT TOLERATING TPN. PT REPORTED NO DIET QUESTIONS AT THIS TIME. RD TO CONTINUE TO FOLLOW. OF NOTE, PHOS LEVEL LOW -TPN PROVIDES 72 G PRO, 1224 NON-PROTEIN KCAL, 1512 TOTAL KCAL (88% ESTIMATED NUTRIENT NEEDS, 87% ESTIMATED PROTEIN NEEDS) Dx: INADEQUATE PROTEIN-ENERGY INTAKE R/T CLINICAL DIAGNOSIS, PANCREATITIS AEB NPO STATUS, TPN INITIATED.-ACTIVE/RESOLVED. NEW DX: INADEQUATE PROTEIN ENERGY INTAKE R/T CLINICAL DIAGNOSIS, PANCREATITIS AEB PT RECEIVING TPN + CLEAR LIQUID DIET. Intervention: 1. CLEAR LIQUID DIET 2. ENSURE CLEAR TID 3. TPN Monitoring, Evaluation and Goals: 1. TPN; MONITOR LABS FOR INTOLERANCE, PROVIDE >80% ESTIMATED NEEDS-IN PROGRESS 2. IMPROVE LABS; K+, PHOS, GLUCOSE, AMYLASE, LIPASE-IN PROGRESS [facility] Nutrition Therapy DATE: 09/05/16 Patient: MADAN FLORES Physician: ROBERT Address: [address] [place] [address] Room/Bed: [address] [place] [address], Zip: [place] [address] Admit Date: 08/30/16 Date of : [birth year] Height: 5 3 Weight: 153 69.6 3. WEIGHT; PREVENT UNINTENTIONAL WEIGHT LOSS-IN PROGRESS 4. GI; PROMOTE BOWEL REGULARITY-IN PROGRESS NEW GOALS: 1. ORAL INTAKE; ADVANCE DIET AND CONSUME >50% OF MEALS AND SUPPLEMENTS MONITOR: -TPN RATE/TOLERANCE -WEIGHTS -LABS -DIET ADVANCEMENT? Recommendations: 1. CONTINUE TO MONITOR ELECTROLYTES AND BLOOD SUGAR LEVELS DAILY 2. IF TPN SOLE SOURCE OF NUTRITION, RECOMMEND TO ADVANCE CURRENT TPN 25% DEXTROSE, 5% TO GOAL RATE OF 75 ML/HR -PROVIDES 90 G PRO, 1530 NON-PROTEIN KCAL, 1890 KCAL (GUR: 4.6) 3. ONCE MEDICALLY FEASIBLE, ADVANCE DIET TOLERATED TO LOW FAT DIET (W/OUT SYMPTOMS) RD WILL F/U PER PROTOCOL PT IS MOD/SEVERELY COMPROMISED Respectfully, HERMINIA MORATAYA MS, RD, LD [facility] cc: client file
--- NOTE | ~2016-08-30 | A ---
[facility] Nutrition Therapy DATE: 09/02/16 Patient: MADAN FLORES Physician: ROBERT Address: [address] [place] [address] Room/Bed: [address] [place] [address], Zip: [place] [address] Admit Date: 08/30/16 Date of : [birth year] Height: 5 3 Weight: 160 72.6 NUTRITIONAL ASSESSMENT: REASON: Consult to assess nutrition for TPN 61 yo female admitted for Acute pancreatitis following ERCP PMH: HLD, hepatic biliary dilation, PUD, colitis, cholecystectomy, appendectomy, migraines, fibromyalgia Anthropometrics: Ht: 63" Wt: 68.2 kg BMI: 26.6 Labs: K+ 3.3 Gluc 186 BUN 6 Ca++ 7.5 Alb 2.5 Phos 1.0 Accuchecks 144-145 Amylase 391 Lipase 130 Prealb 7.1 Meds: TPN @ 40 mL/hr, D5%, zofran, protonix, NaCl I/O & Bowel function: 5450/1008, last BM 09/02 Skin Integrity: Scab DANN Bruise left hand Edema: BLE trace BUE 1+ Estimated Nutrition Needs: 4977-2036 kcals (25-30 kcals/kg) 82-102 grams protein (1.2-1.5 grams/kg) Diet: NPO Assessment: Chart reviewed, events noted. Pt admitted for severe acute pancreatitis following an ERCP. Pt admitted with n/v and weakness, found to have acute pancreatitis, gastritis, multiple erosions, mild ileus and small hiatal hernia. TPN was initiated yesterday 09/01. RD spoke with the pt at bedside. Pt denies any recent weight loss; however, she reports that she has not had any nutrition PO for one week prior to admission. Pt appears lethargic and weak, does not have an appetite. RD briefly explained diet advancement process once pancreatitis resolves. Pt denies any abdominal pain or vomiting at this time. Of note, the pt's Phos is critically low and K+ is low as well. In addition, there was an increase in the pt's blood glucose levels, which is concerning for refeeding syndrome noting poor nutritional intake and low electrolyte levels. Please see recommendations below. [facility] Nutrition Therapy DATE: 09/02/16 Patient: MADAN FLORES Physician: ROBERT Address: [address] [place] [address] Room/Bed: [address] [place] [address], Zip: [place] [address] Admit Date: 08/30/16 Date of : 59 Height: 5 3 Weight: 160 72.6 Dx: Inadequate protein-energy intake RT clinical condition, pancreatitis AEB NPO status, TPN initiated. Intervention: 1. EN if feasible 2. Advance diet once medically feasible 3. TPN Monitoring, Evaluation and Goals: 1. TPN; monitor labs for tolerance, provide >80% of the pt's nutrient needs if decided as the sole source of nutrition 2. Improve labs; K+, Phos, glucose, Amylase, lipase 3. Weight; prevent unintentional weight loss 4. GI; promote bowel regularity Recommendations: 1. Recommend holding TPN until the pt's Phos and K+ are repleted, as the pt is at risk for refeeding syndrome with prolonged poor nutritional intake and low electrolyte levels. 2. Consider obtaining short term enteral access and initiating enteral nutrition with semi-elemental formula Vital 1.5 (appropriate for pancreatitis) per ASPEN guidelines. If ordered by MD: -Start Vital 1.5 @ 10 mL/hr. Increase by 10 mL q 12 hrs as tolerated to goal of 55 mL/hr. This would provide: 1980 kcals/ 89 grams protein/ 1003 mL free H20 3. If enteral nutrition is not considered, recommend resuming TPN (25% dextrose) at a low rate once electrolytes are repleted. Slowly increase to goal rate of 75 mL/hr over 3-4 days. TPN (25% dextrose) @ 75 mL/hr will provide: 1530 kcals dextrose 1890 kcals total 90 grams protein GUR= 4.6 MONITOR FOR SHIFTS IN ELECTROLYTES AND GLUCOSE LEVELS CLOSELY 4. Once medically feasible, advance the pt to a clear liquid diet as tolerated + Ensure clear TID. If the pt tolerates clear liquids for 24 hrs (or per MD discretion) without symptoms of intolerance, advance to a low fat diet as tolerated. [facility] Nutrition Therapy DATE: 09/02/16 Patient: MADAN FLORES Physician: ROBERT Address: [address] [place] [address] Room/Bed: [facility], Zip: [place] [address] Admit Date: 08/30/16 Date of : 59 Height: 5 3 Weight: 160 72.6 Pt is at moderate-severe nutritional risk. RD will follow hospital course. Respectfully, BETHANY MITCHELL RD, LD Food and Nutritional Services [facility] cc: client file
--- NOTE | ~2016-08-30 | CT16 ---
[facility] A Service of [facility] RADIOLOGY TEXT RESULTS PATIENT: MADAN FLORES LOCATION: [facility] [id number] : [birth year] UNIT #: [id number] AGE: [address]: Donny Silva MD SEX: F ORDER DR: [id number] [facility] [address] [place], [place] [address] [id number] I MR#: [id number] Acc #: [id number] NAME: MADAN FLORES. : 1955 SEX: F STUDY DATE/TIME: 09/04/2016 16:14 UNIT: [facility] ROOM: [facility] STUDY DESCRIPTION: CT Angio Chest for PE Attending Physician: Donny Silva M.D. Ordering Physician: Bam Shannon M.D. Primary Care Physician: Mark Ball M.D. MEDICAL IMAGING REPORT This report is preliminary unless electronic signature is present EXAM Chest CTA, 09/04 INDICATION Shortness of air for the last 6 days. History of hypertension. TECHNIQUE Axial images were obtained through the chest following IV contrast administration. 3-D reformats were obtained. Comparison made with 07/21/2015. This CT exam was performed with one or more of the following radiation dose reduction techniques: automatic exposure control, adjustment of mA and/or kV according to patient size, and iterative reconstruction. FINDINGS There is no pulmonary embolism or aortic dissection. There are small to moderate pleural effusions, right greater than left which are similar in appearance to the CT abdomen performed yesterday. no pericardial effusion. No adenopathy. Dense consolidation is noted in the lower lobes and may reflect atelectasis and/or pneumonia. Right arm PICC has its tip in the lower SVC. Upper abdomen again shows ascites and cholecystectomy. IMPRESSION 1. No pulmonary embolism or aortic dissection. 2. Vegyg-xu-psbyhpex bilateral effusions, right greater than left with consolidation in the lower lobes, right greater than left. There is consolidation that may reflect atelectasis and/or pneumonia. 3. Upper abdomen is not appreciably changed from yesterday's CT abdomen and pelvis. [facility] A Service of [facility] & [facility] RADIOLOGY TEXT RESULTS PATIENT: MADAN FLORES LOCATION: [place] [address] : [birth year] UNIT #: [id number] AGE: [address]: Donny Silva MD SEX: F ORDER DR: Dictated by... Javy Harden Jr., M.D. THIS IS AN ELECTRONICALLY VERIFIED REPORT Javy Harden Jr., M.D. at 09/06/2016 7:35 AM MADONNA/mike TD: 09/05/2016 00:17 JOB #: [id number] MEDICAL IMAGING REPORT Page 1 of 1 COPY
--- NOTE | ~2016-08-30 | FU ---
[facility] Nutrition Therapy DATE: 09/08/16 Patient: MADAN Deshpande SANDRA Physician: ROBERT Address: [address] [place] [address] Room/Bed: [address] [place] [address], Zip: [place] [address] Admit Date: 08/30/16 Date of : 59 Height: 5 3 Weight: 150 68.4 NUTRITION MONITORING/FOLLOW-UP: Reason: PT SEEN FOR FOLLOW-UP DX: PANCREATITIS Anthropometrics: 5'3", WT: 150# (68 KG), BMI: 26.6 -WEIGHTS HAVE BEEN STABLE SINCE ADMIT Labs: ALB: 2.5, ALT: 58, LIPAS: 52 Meds: NACL, KCL, ZOFRAN, PROTONIX I&O's: 4210/9, 2 BMs NOTED Skin: ISSUES PREVIOUSLY NOTED Estimated Nutrition Needs: 5703-4319 KCAL 82-102 G PRO Assessment: CHART REVIEWED AND EVENTS NOTED. PT SEEN FOR FOLLOW-UP. PT REPORTS FAIR PO INTAKE AND APPETITE, NOTING SOME N/D BUT NO C/O OF VOMITING. PER RN AND CHART, TPN D/C'D AND PT FOLLOWING HEALTHY HEART DIET, (ACUTE PANCREATITIS RESOLVING BUT ?COLITIS). PT REPORTS TOLERATING SWEET POTATOES FOR LUNCH TODAY. THIS RD ENCOURAGED SLOW GRADUAL PO INTAKE + SUPPLEMENT INTAKE, PT REQUESTED FOR ENSURE CLEAR TO BE D/C'D AND AGREEABLE TO TRYING MAGIC CUP BID, RD TO ORDER. PT REPORTED NO DIET QUESTIONS AT THIS TIME. RD TO CONTINUE TO FOLLOW. Dx: INADEQUATE PROTEIN-ENERGY INTAKE R/T CURRENT DIAGNOSIS, PANCREATITIS AEB PT RECEIVING TPN + CLEAR LIQUID DIET. RESOLVED NEW DX: INADEQUATE PROTEIN-ENERGY INTAKE R/T CURRENT DIAGNOSIS, PANCREATITIS AEB PT REPORT ABOVE. Intervention: 1. HEALTHY HEART DIET 2. ENSURE CLEAR BID D/C'D 3. ORDERED MAGIC CUP BID Monitoring, Evaluation and Goals: 1. TPN: PROVIDE >80% ESTIMATED NUTRIENT NEEDS-RESOLVED 2. ORAL INTAKE; CONSUME >50% OF MEALS AND SUPPLEMENTS W/NO C/O N/V/D-IN PROGRESS 3. WEIGHTS; PREVENT UNINTENTIONAL WEIGHT LOSS-IN PROGRESS 4. IMPROVE LABS; WNL-IN PROGRESS/ACTIVE 5. GI; PROMOTE REGULAR BOWEL FUNCTION [facility] Nutrition Therapy DATE: 09/08/16 Patient: MADAN FLORES Physician: ROBERT Address: [address] [place] [address] Room/Bed: [address] [place] [address], Zip: [place] [address] Admit Date: 08/30/16 Date of : 59 Height: 5 3 Weight: 150 68.4 MONITOR: -PO INTAKE/APPETITE -WEIGHTS -SUPPLEMENT INTAKE -LABS Recommendations: 1. PLEASE D/C ENSURE CLEAR BID W/MEALS -ORDER JUAN MAGIC CUP BID W/MEALS 2. CONTINUE TO ENCOURAGE ADEQUATE KCAL AND PROTEIN INTAKE PT COULD BENEFIT FROM LOW FAT DIET ALONE. LIBERALIZE DIET TO ALLOW FOR MORE FOOD CHOICES RD WILL F/U PER PROTOCOL PT IS MILD/MODERATELY COMPROMISED Respectfully, HERMINIA MORATAYA MS, RD, LD Food and Nutritional Services [facility] cc: client file
--- NOTE | ~2016-08-30 | CO ---
Unit #: [id number] #: [id number] Patient: MADAN HERNANDEZ [id number] [address] [address] [id number] I MR#: [id number] NAME: MADAN HERNANDEZ ROOM: 565 Age: 61 Sex: F Admission Date: 08/30/2016 : 1955 Attending Physician: Audra Woo M.D. Primary Care Physician: Mark Ball M.D. Consultation Date: 08/30/2016 CONSULTATION REPORT REASON FOR CONSULTATION Abdominal pain, pancreatitis. HISTORY OF PRESENT ILLNESS Ms. Hernandez is a 61-year-old pleasant female. She had an attempted ERCP this morning by myself where I was unable to get into the bile duct after several attempts. She went home after that and presented back to the emergency room within four hours with severe abdominal pain going to the back and nausea. She had no fever, no chills. She has not had similar severe pain in the past. She did have abdominal pain, particularly right sided, and progressive dilation of common bile duct for which she was brought in for ERCP. Also, she was found to have gastritis and a small gastric ulcer in the antral area at that time. Currently, she is in severe pain. PAST MEDICAL HISTORY 1. Recently, she presented with acute colitis which was thought to be ischemic colitis. That was treated conservatively and symptoms have since resolved. 2. History of peptic ulcer disease. 3. History of chronic pain syndrome and fibromyalgia. 4. History of colonic polyps. PAST SURGICAL HISTORY History of multiple surgeries includin. Cervical diskectomy. 2. Rotator cuff surgery. 3. Tubal ligation. 4. Carpal tunnel syndrome. 5. Hysterectomy. HOME MEDICATIONS 1. Fiorinal. 2. Cymbalta. 3. Pravachol. 4. Lyrica. 5. Protonix. 6. Topamax. ALLERGIES Phenytoin, atorvastatin. SOCIAL HISTORY Nonsmoker. Nonalcoholic. Unit #: [id number] #: [id number] Patient: MADAN HERNANDEZ A REVIEW OF SYSTEMS Complete 10-point review of systems was done which is unremarkable other than as mentioned above. PHYSICAL EXAMINATION VITAL SIGNS: Stable. Temperature 97.5, pulse 83, respirations 18, blood pressure 108/93. HEENT: Pupils equal and reactive. Sclerae anicteric. Oral mucosa moist. NECK: No JVD. No lymphadenopathy. CHEST: Few scattered rhonchi. Decreased breath sounds at bases. CARDIOVASCULAR: Regular rate and rhythm. No murmurs. ABDOMEN: Significantly tender. Mild guarding, generalized, more so on the upper abdomen. EXTREMITIES: Without clubbing, cyanosis, or edema. NEUROLOGIC: Intact. SKIN: Warm and dry. DIAGNOSTIC STUDIES LABORATORY: Lipase 8284, amylase 4977. LFTs are normal. BUN and creatinine normal. White count elevated at 17,000. IMAGING: CT scan shows wxgiufft-jj-nbjdgo pancreatitis. No necrosis seen. ASSESSMENT 1. Patient with acute severe pancreatitis, post endoscopic retrograde cholangiopancreatography. 2. 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 3. Peptic ulcer disease. PLAN Will continue with aggressive conservative treatment including pain medications, IV fluids, NG aspiration, PPI therapy, and broad-spectrum antibiotics at this time. Extensive discussion was carried out with the patient as well as her , both in the room. Thank you, Dr. Vásquez, for this interesting consult. Will follow along. Dictated by... Joshua Leyva/ian TD: 08/31/2016 10:28 JOB #: [id number] Unit #: [id number] #: [id number] Patient: MADAN HERNANDEZ CONSULTATION REPORT Page 1 of 1 X Rodri Vazquez MD X CONSULTATION REPORT
--- NOTE | ~2016-08-30 | CO ---
Unit #: [id number] #: [id number] Patient: MADAN HERNANDEZ [id number] [address] [place], [place] [address] [id number] I MR#: [id number] NAME: MADAN HERNANDEZ. ROOM: 565 Age: 61 Sex: F Admission Date: 08/30/2016 : 1955 Attending Physician: Donny Silva M.D. Primary Care Physician: Mark Ball M.D. Consultation Date: 09/07/2016 CONSULTATION REPORT REASON FOR CONSULTATION Enterocolitis. Thank you very much for asking us to see Ms. Hernandez. HISTORY OF PRESENT ILLNESS She is a 61-year-old white female, whose past surgical history is remarkable for laparoscopic cholecystectomy last year as well as a MALAIKA-BSO. She was admitted in early 08/2016 with rectal bleeding and colitis. She improved and was discharged home for possible outpatient colonoscopy. She reportedly had a dilated common bile duct and had an attempted outpatient ERCP. She was admitted with post ERCP pancreatitis. She has been here since 08/30/2016. She is currently on TPN and clear liquid diet. She has developed watery diarrhea in the last 2 to 3 days. She will have 5 to 10 loose watery bowel movements per day. She denies seeing any blood. She had a CT scan of the abdomen and pelvis performed, which revealed diffuse thickening of the wall of colon consistent with enterocolitis. There was no free air and no evidence of abscess or pneumatosis. She presents at this time for further evaluation and treatment. PAST MEDICAL HISTORY Migraine headaches, hypertension, depression, chronic pain syndrome, hyperlipidemia, fibromyalgia, peptic ulcer disease, colonic polyps in the past, appendectomy, hysterectomy, bilateral carpal tunnel release, cholecystectomy, oral surgery, C-spine fusion and MALAIKA-BSO. MEDICATIONS Please see med rec sheet. SOCIAL HISTORY No tobacco or alcohol use. FAMILY HISTORY Noncontributory. REVIEW OF SYSTEMS Negative except for above. IMMUNIZATION STATUS Unknown. PHYSICAL EXAMINATION Unit #: [id number] #: [id number] Patient: MADAN HERNANDEZ GENERAL: Well-developed, well-nourished white female, in no acute distress. VITAL SIGNS: Temperature is currently 97.5, pulse 97, respirations 16, blood pressure 118/70. NECK: Supple. No thyromegaly or adenopathy. HEENT: Sclerae not icteric. Extraocular movements are intact. BACK: No CVA or spinous tenderness. ABDOMEN: Flat, soft, mild to moderate diffuse tenderness, but no rebound, peritoneal signs, or masses. EXTREMITIES: No calf tenderness. DIAGNOSTIC STUDIES LABORATORY RESULTS: Revealed the patient to have a CMP that shows a glucose of 150, BUN 9, creatinine 0.5, calcium 8.2, albumin 2.6, total bilirubin 0.8. AST 40, ALT 75, alkaline phosphatase 141. White count is 13.1 with hemoglobin of 11.3, hematocrit 34.2, platelet count 277,000. Stool studies were performed on 09/03/2016, which revealed negative Salmonella or Shigella. Negative Campylobacter and no evidence of Clostridium difficile. IMPRESSION A 61-year-old white female with watery diarrhea and a CT scan evidence of pancolitis. We feel the patient could possibly still have antibiotic associated colitis. We recommend changing her Flagyl to p.o., restarting her Zosyn and adding vancomycin IV. We will add additional IV fluids for hydration. We will check lactic acid level. We have explained all to the patient regarding the current treatment plan including the fact that if she deteriorates in terms of increased pain, fever, white blood cell count, or rising lactic acid level, she may need operative intervention. She understands all and requests to proceed with the current treatment plan. Dictated by... Joshua Rosales/yuliya TD: 09/08/2016 01:08 JOB #: [id number] CC: [facility] Rodri Vazquez M.D. CONSULTATION REPORT Page 1 of 1 X Dave Kraft MD X CONSULTATION REPORT
--- NOTE | ~2016-08-30 | CT2 ---
[facility] A Service [facility] RADIOLOGY TEXT RESULTS PATIENT: MADAN FLORES LOCATION: [facility] 565-01 : 59 UNIT #: [id number] AGE: [address]: Donny Silva MD SEX: F ORDER DR: [id number] [place] [id number] [facility]. [place], [place] [address] [id number] I MR#: [id number] Acc #: [id number] NAME: MADAN FLORES. : 1955 SEX: F STUDY DATE/TIME: 09/11/2016 9:44 UNIT: [facility] ROOM: [facility] STUDY DESCRIPTION: CT Abd and Pelv W Cont Attending Physician: Donny Silva M.D. Ordering Physician: Dave Kraft M.D. Primary Care Physician: Mark Ball M.D. MEDICAL IMAGING REPORT This report is preliminary unless electronic signature is present EXAM CT abdomen and pelvis with contrast INDICATION Upper abdominal pain beginning on 08/30/2016. Pancreatitis. Followup. PROCEDURE Contrast-enhanced CTA abdomen and pelvis. This CT exam was performed with one or more of the following radiation dose reduction techniques: automatic exposure control, adjustment of mA and/or kV according to patient size, and iterative reconstruction. COMPARISON 09/06/2016 FINDINGS ABDOMEN WITH CONTRAST: There is mild atelectasis in the right lung base with a trace amount of right pleural fluid Significantly improved from the prior. Persistent but improving peripancreatic inflammatory change. The amount of fluid throughout the abdomen is improved. There is a small organized collection anterior to the head of the pancreas that measures 2.5 x 1.3 cm, favored to represent a small pseudocyst. Pancreatic duct not significantly dilated. Previous cholecystectomy. There is stable mild prominence of the common duct. No evidence for obstructing mass or radiodense stone. The spleen, adrenal glands are unremarkable. There are two small pseudocysts along the tail of the pancreas, one measuring 1.4 cm, the other approximately 1.9 cm. The portal splenic superior mesenteric veins [facility] A Service [facility] RADIOLOGY TEXT RESULTS PATIENT: MADAN FLORES LOCATION: [facility] [id number] : 59 UNIT #: [id number] AGE: [address]: Donny Silva MD SEX: F ORDER DR: are patent. Bowel loops are nondilated. Moderate colonic stool burden. There are nonobstructing calculi in both kidneys measuring up to 4.0 mm. PELVIS WITH CONTRAST: No pelvic mass. There is a small amount of fluid in the pelvis similar to the prior. No aggressive appearing bone lesion. IMPRESSION 1. Persistent but improving peripancreatic inflammatory change. The amount of fluid in the abdomen is significantly improved. There are three small pseudocysts, one adjacent to the head of the pancreas and two adjacent to the tail of the pancreas as detailed above. 2. Improving bilateral pleural effusions and bibasilar atelectasis with a trace amount of atelectasis and pleural fluid remaining at the right lung base. 3. Other findings above. Dictated by... Seymour Ron M.D. THIS IS AN ELECTRONICALLY VERIFIED REPORT Seymour Ron M.D. at 09/13/2016 2:27 PM Ham TD: 09/11/2016 11:57 JOB #: [id number] MEDICAL IMAGING REPORT Page 1 of 1 COPY
--- NOTE | ~2016-08-30 | CT2 ---
[facility] A Service of [facility] & [facility] RADIOLOGY TEXT RESULTS PATIENT: MADAN FLORES LOCATION: [facility] 565- : 59 UNIT #: [id number] AGE: [address]: Audra Woo MD SEX: F ORDER DR: [id number] [facility] [address] [place], [place] [address] [id number] I MR#: [id number] Acc #: [id number] NAME: MADAN FLORES : 1955 SEX: F STUDY DATE/TIME: 08/30/2016 17:23 UNIT: [facility] ROOM: [id number] STUDY DESCRIPTION: CT Abd and Pelv W Cont Attending Physician: Agnieszka Vásquez M.D. Ordering Physician: [facility] Primary Care Physician: Mark Ball M.D. MEDICAL IMAGING REPORT This report is preliminary unless electronic signature is present EXAM CT abdomen and pelvis HISTORY Pain. Right upper quadrant pain status post difficult ERCP x2. A.M. 08/30/2016. Prior tubal ligation and appendectomy, hysterectomy. Prior lithotripsy, cholecystectomy 2015. TECHNIQUE CT abdomen and pelvis performed with intravenous administration of 100 mL Isovue-370. Enteric contrast also administered. This CT exam was performed with one or more of the following radiation dose reduction techniques: automatic exposure control, adjustment of mA and/or kV according to patient size, and iterative reconstruction. COMPARISON STUDIES 08/07/2016. FINDINGS Linear densities at the right lung base favored to be atelectasis. Lung bases otherwise clear. Inferior heart and pericardium unremarkable. No focal hepatic parenchymal abnormality. Status post cholecystectomy. The intra- and extrahepatic biliary ductal dilatation not significantly changed from prior CT examination. The extrahepatic duct measures up to about 1.1-1.2 cm in diameter with no obstructing process seen. Similar appearance on prior CT. There is new small volume ascites adjacent to the liver. Not a drainable fluid collection. There is small volume ascites in the left pericolic gutter and small amounts of fluid along the anterior pararenal fascia bilaterally. Small amount of fluid in the dependent deep pelvis. The spleen is unremarkable. The pancreas shows new mild ductal prominence. Pancreatic duct now measures approximately 3-4 mm in maximum STS. [facility] A Service of [facility] & [facility] RADIOLOGY TEXT RESULTS PATIENT: MADAN FLORES [id number] 59 UNIT #: [id number] AGE: [address]: Audra Woo MD SEX: F ORDER DR: diameter, previously about 2-3 mm. There is suggestion of pancreatic parenchymal edema. The pancreatic head measures approximately 4.4 cm in AP dimension, previously 3 cm. There is peripancreatic fat stranding and haziness. As noted, there is fluid extending along the anterior pararenal fascia bilaterally. There is some fluid along the anterior-inferior aspect of the pancreas along the posterior aspect of the stomach. No indication of pseudocyst. No drainable fluid collection. Overall appearance suggests qeuvzjxl-dz-aylass pancreatitis. Please correlate with clinical presentation and laboratory data. I see no free air. No indication of abscess. The adrenal glands are unremarkable. Focal areas of renal cortical thinning bilaterally are stable and likely reflect prior episodes of infection or prior vascular insult. Bilateral non-obstructing renal calculi are unchanged. There is no hydronephrosis or hydroureter. CT PELVIS: No inguinal adenopathy. The urinary bladder is unremarkable. Patient is status post hysterectomy. No suspicious adnexal structure. No pelvic or retroperitoneal adenopathy. The distal esophagus is unremarkable. There is bhqb-kv-ytnomjnd gastric distension with contrast material. No focal gastric abnormalities seen. There is concentric mural thickening distal second portion of the duodenum and throughout the third segment of the duodenum. There is contrast extension into the small bowel. The duodenal wall thickening is new compared to prior examination and may be secondary to the adjacent pancreatitis. Patient is reported to be status post ERCP. Please correlate with ERCP findings. Some of the duodenal edema could be secondary to recent instrumentation. Contrast and fluid seen throughout the small bowel. Contrast extends into the distal small bowel. There is mild distension of the small bowel throughout its course. Small bowel measures up to about 2 mm in diameter. There is no pathologic dilatation and there is no localized transition zone or evidence of small bowel obstruction. I favor the appearance represents small bowel ileus secondary to intraabdominal inflammation related to pancreatitis. The patient is status post appendectomy by history. Previously described bowel wall thickening persists in the ascending transverse colonic segments. Does not appear to be significant wall thickening in descending or sigmoid colon. Findings may reflect some degree of residual ascending and transverse colitis. Findings may in part be secondary to intraabdominal inflammation from pancreatitis. Atherosclerotic arterial calcifications. No aneurysm. The visualized aortic branch vessels appear patent. The portal vein and its major tributaries appear patent. No acute-appearing bony abnormality. IMPRESSION 1. Abnormal examination. Please see complete dictation above for full details. Findings most consistent with gljdllkd-cm-bxenyg acute pancreatitis. There is pancreatic edema and slightly heterogeneous enhancement with no findings to suggest pancreatic necrosis at this time. Pancreas appears slightly enlarged overall compared to 08/07/2016. Peripancreatic inflammatory change. Peripancreatic fluid extending into the lesser sac, along the STS. [facility] A Service of [facility] RADIOLOGY TEXT RESULTS PATIENT: MADAN FLORES LOCATION: [place] [address] : [birth year] UNIT #: [id number] AGE: [address]: Audra Woo MD SEX: F ORDER DR: anterior-inferior aspect of the pancreas, along the bilateral anterior pararenal fascia and into the left pericolic gutter and into the deep pelvis. No drainable fluid collections are seen. There is a small amount of fluid/ascites adjacent to the liver as well. Also not a drainable fluid collection. 2. Status post cholecystectomy. Stable intra- and extrahepatic biliary ductal dilatation without obstructing process seen. The patient is reported to be status post ERCP. Please correlate with ERCP findings. 3. Mild pancreatic ductal distension measuring up to 3-4 mm in diameter, previously 2-3 mm. Probably a reflection of recent instrumentation and pancreatitis. Again, correlate with ERCP findings. Attention at followup recommended. 4. Concentric mural thickening distal second portion of duodenum and throughout the third portion of duodenum. Findings suggest duodenitis which could be largely related to the adjacent acute pancreatitis. Some of the duodenal wall thickening could be a reflection of recent instrumentation. Again, correlate with EGD findings. 5. There is mild generalized fluid distension and contrast distension of the small bowel without pathologic dilatation and with no evidence of obstruction. Findings probably reflect mild generalized ileus due to pancreatitis. 6. The findings of colonic mural thickening seen on prior examination persist in the ascending and transverse colon. This may be a reflection of some persistent mild infectious or inflammatory colitis and some sympathetic reaction to intraabdominal inflammation from pancreatitis. There is no colonic obstruction. Air and stool seen throughout colon to rectum. 7. No acute vascular abnormality. 8. Mild gastric distension with contrast material. This is probably related to ileus and perhaps some degree of delayed gastric emptying secondary to the duodenal thickening. Please note that there is oral contrast seen beyond the duodenum and throughout the majority of the small bowel. 9. Non-obstructing renal calculi unchanged. Focal areas of parenchymal loss and bilateral kidneys likely reflecting remote vascular insult or prior episodes of infection. 10. Please see remainder of incidental findings in body of report above. Dictated by... Curt Rahman M.D. THIS IS AN ELECTRONICALLY VERIFIED REPORT Curt Rahman M.D. at 08/31/2016 5:58 PM MARYLINK/tati STS. [facility] A Service of [facility] & [facility] RADIOLOGY TEXT RESULTS PATIENT: MADAN FLORES LOCATION: [facility] 565-01 : 59 UNIT #: [id number] AGE: [address]: Audra Woo MD SEX: F ORDER DR: TD: 08/30/2016 21:13 JOB #: [id number] MEDICAL IMAGING REPORT Page 1 of 1 COPY
--- NOTE | ~2016-08-30 | XA166 ---
[facility] A Service of [facility] RADIOLOGY TEXT RESULTS PATIENT: MADAN FLORES LOCATION: [facility] 565-01 : 59 UNIT #: [id number] AGE: [address]: Audra Woo MD SEX: F ORDER DR: [id number] [facility] [address] [facility]. [place], [place] [address] [id number] I MR#: [id number] Acc #: [id number] NAME: MADAN FLORES : 1955 SEX: F STUDY DATE/TIME: 09/01/2016 12:29 UNIT: [facility] ROOM: [facility] STUDY DESCRIPTION: XA PICC Line Placement WO Port Attending Physician: Audra Woo M.D. Ordering Physician: Agnieszka Vásquez M.D. Primary Care Physician: Mark Ball M.D. MEDICAL IMAGING REPORT This report is preliminary unless electronic signature is present EXAM PICC line placement HISTORY Need for IV access. PRE-PROCEDURE The procedure was explained to the patient and/or patient marketing development representative including risks, benefits, potential complications and potential for alternative forms of treatment. Informed consent was obtained, and prior to initiating the procedure a formal timeout procedure was performed. PROCEDURE Using full standard sterile barrier technique, including caps, gowns, gloves, masks, as well as sterile skin preparation and standard sterile draping, the right arm was prepped and draped in the usual fashion, and real-time sterile ultrasound guidance was used to localize an arm vein and to confirm vessel patency. A hard copy ultrasound image was recorded. After local anesthesia with 1% Xylocaine, the vein was punctured using real-time sterile ultrasound guidance, and an 0.018 guidewire was advanced into the superior vena cava, using fluoroscopic guidance. A 5-Senegalese 40-cm double-lumen PICC was then measured and deployed with the tip positioned in the superior vena cava. The position of the line was documented with a radiographic image. The line was secured in place with an adhesive dressing and an antibiotic patch was applied. Total fluoro time was 0.1 minutes. A single fluoroscopic spot image was obtained. Reference air kerma 1 mGy. IMPRESSION 1. Successful placement of a 5-Senegalese 40-cm double-lumen Power PICC via the right arm under ultrasound and fluoroscopic guidance. The tip of the PICC is in good position in the superior vena cava. [facility]. [facility] A Service of [facility] RADIOLOGY TEXT RESULTS PATIENT: MADAN FLORES LOCATION: [place] [address] : 59 UNIT #: [id number] AGE: [address]: Audra Woo MD SEX: F ORDER DR: 2. A single fluoroscopic spot image was obtained. Dictated by... Hamzah Reyes M.D. THIS IS AN ELECTRONICALLY VERIFIED REPORT Hamzah Reyes M.D. at 09/02/2016 9:50 AM ILIR/tati TD: 09/01/2016 21:32 JOB #: [id number] MEDICAL IMAGING REPORT Page 1 of 1 COPY
[~2016-08-30 13:48] MED LIST changes: -ACETAMINOPHEN PO; -ADVAIR 100-501 EACH INH; -NORCO PO; -PERCOCET 5/321 UDTAB PO
[2016-08-30 15:02] LABS: BASOPHIL# 0.1 X10e3 (0-0.3); BASOPHIL% 0.6 % (0-2.5); EOSINOPHIL# 0.1 X10e3 (0-0.7); EOSINOPHIL% 0.7 % (0.0-7.0); HEMATOCRIT 49.5 % (35.0-45.0); HEMOGLOBIN 16.4 gm/dL (12.0-16.0); LYMPHOCYTE# 3.1 X10e3 (1.0-3.5); LYMPHOCYTE% 17.9 % (17.0-45.0); MEAN CELL VOLUME 88.5 FL (83-96); MEAN CORPUSCULAR HEMOGLOBIN 29.3 PG (28-34); MEAN CORPUSCULAR HGB CONC 33.1 g/dL (30-36); MEAN PLATELET VOLUME 9.5 FL (6.5-11.5); MONOCYTE% 5.9 % (3.0-12.0); NEUTROPHIL# 12.9 X10e3 (1.5-7.1); NEUTROPHIL% 74.9 % (40-75); PLATELET COUNT 282 X10e3 (140-420); RED BLOOD COUNT 5.59 X10e (3.90-5.30); RED CELL DISTRIBUTION WIDTH 13.5 % (11.0-15.5); WHITE BLOOD COUNT 17.2 X10e3 (4.0-10.5)
[2016-08-30 15:09] LABS: URINE SOURCE CLEAN CATCH
[2016-08-30 15:12] LABS: DIFF IND YES
[2016-08-30 15:13] LABS: URINE APPEARANCE CLEAR; URINE BILIRUBIN NEG (NEG); URINE BLOOD NEG (NEG); URINE COLOR YELLOW; URINE GLUCOSE NEG (NEG); URINE KETONE NEG (NEG); URINE LEUKOCYTE ESTERASE TRACE (NEG); URINE NITRATE NEG (NEG); URINE PROTEIN TRACE (NEG); URINE UROBILINOGEN 0.2 MG/DL (NEG)
[2016-08-30 15:16] LABS: U HYALINE CASTS AUWI 0-2 /[LPF]; URBCS1 AUWI 0-2 /[HPF] (0-2); URINE BACTERIA AUWI NEG (NEGATIVE); URINE SQUAMOUS EPITHELIAL CELL NONE SEEN /[HPF]; UWBCS1 AUWI 0-2 (0-5)
[2016-08-30 15:18] LABS: CULTURE INDICATED? NO
[2016-08-30 15:22] LABS: PLATELET ESTIMATE NORMAL (NORMAL); RBC NORMAL YES
[2016-08-30 16:59] LABS: ALBUMIN SERUM 4.4 g/dL (3.5-5.0); BILIRUBIN, DIRECT 0.3 mg/dL (0.0-0.2); BILIRUBIN,INDIRECT 0.3 mg/dL (0.0-0.9); BILIRUBIN,TOTAL 0.6 mg/dL (0.2-2.0); BUN/CREATININE RATIO 18.75; CREATININE SERUM 0.8 mg/dL (0.6-1.4); GLOM FILT RATE Estimated 80.8 mL/min (>60); POTASSIUM 4.4 mmol/L (3.5-5.1); PROTEIN TOTAL SERUM 6.9 g/dL (6.0-8.3)
[2016-08-31 04:28] LABS: BILIRUBIN,TOTAL 0.7 mg/dL (0.2-2.0); BUN/CREATININE RATIO 13.75; CREATININE SERUM 0.8 mg/dL (0.6-1.4); GLOM FILT RATE Estimated 80.8 mL/min (>60); POTASSIUM 4.3 mmol/L (3.5-5.1); PROTEIN TOTAL SERUM 6.3 g/dL (6.0-8.3)
[2016-08-31 04:53] LABS: BASOPHIL% 0.1 % (0-2.5); HEMOGLOBIN 14.2 gm/dL (12.0-16.0); LYMPHOCYTE# 1.2 X10e3 (1.0-3.5); LYMPHOCYTE% 7.6 % (17.0-45.0); MEAN CELL VOLUME 89.7 FL (83-96); MEAN CORPUSCULAR HGB CONC 32.3 g/dL (30-36); MEAN PLATELET VOLUME 9.2 FL (6.5-11.5); MONOCYTE# 0.8 X10e3 (0-1.0); MONOCYTE% 4.9 % (3.0-12.0); NEUTROPHIL# 13.6 X10e3 (1.5-7.1); NEUTROPHIL% 87.4 % (40-75); PLATELET COUNT 183 X10e3 (140-420); WHITE BLOOD COUNT 15.5 X10e3 (4.0-10.5)
[2016-08-31 04:54] LABS: DIFF IND NO
[2016-08-31 05:03] LABS: PARTIAL THROMBOPLASTIN TIME 21.2 SECONDS (23.5-31.3); PROTHROMBIN TIME (PATIENT) 10.6 SECONDS (9.6-11.5)
[2016-08-31 15:16] LABS: BUN/CREATININE RATIO 13.33; CALCIUM SERUM 8.2 mg/dL (8.4-10.2); CREATININE SERUM 0.6 mg/dL (0.6-1.4); GLOM FILT RATE Estimated 99.8 mL/min (>60); POTASSIUM 5.3 mmol/L (3.5-5.1)
[2016-09-01 10:44] LABS: HEMATOCRIT 40.1 % (35.0-45.0); MEAN CELL VOLUME 89.6 FL (83-96); MEAN CORPUSCULAR HGB CONC 32.4 g/dL (30-36); MEAN PLATELET VOLUME 9.2 FL (6.5-11.5); RED BLOOD COUNT 4.48 X10e (3.90-5.30); RED CELL DISTRIBUTION WIDTH 13.8 % (11.0-15.5); WHITE BLOOD COUNT 18.9 X10e3 (4.0-10.5)
[2016-09-01 11:36] LABS: BILIRUBIN,TOTAL 0.9 mg/dL (0.2-2.0); BUN/CREATININE RATIO 8.57; CALCIUM SERUM 7.9 mg/dL (8.4-10.2); CREATININE SERUM 0.7 mg/dL (0.6-1.4); GLOM FILT RATE Estimated 94.8 mL/min (>60); POTASSIUM 3.8 mmol/L (3.5-5.1); PROTEIN TOTAL SERUM 5.2 g/dL (6.0-8.3)
[2016-09-02 07:30] LABS: HEMATOCRIT 36.2 % (35.0-45.0); MEAN CELL VOLUME 88.7 FL (83-96); MEAN CORPUSCULAR HEMOGLOBIN 29.3 PG (28-34); RED BLOOD COUNT 4.08 X10e (3.90-5.30); RED CELL DISTRIBUTION WIDTH 13.5 % (11.0-15.5); WHITE BLOOD COUNT 17.4 X10e3 (4.0-10.5)
[2016-09-02 08:08] LABS: ALBUMIN SERUM 2.5 g/dL (3.5-5.0); BILIRUBIN,TOTAL 0.5 mg/dL (0.2-2.0); CALCIUM SERUM 7.5 mg/dL (8.4-10.2); CREATININE SERUM 0.6 mg/dL (0.6-1.4); GLOM FILT RATE Estimated 99.8 mL/min (>60); MAGNESIUM 1.6 mg/dL (1.6-3.0); POTASSIUM 3.3 mmol/L (3.5-5.1); PROTEIN TOTAL SERUM 4.9 g/dL (6.0-8.3)
[2016-09-02 08:12] LABS: PREALBUMIN 7.1 mg/dL (17.0-42.0)
[2016-09-02 16:55] LABS: CALCIUM SERUM 7.6 mg/dL (8.4-10.2); CREATININE SERUM 0.7 mg/dL (0.6-1.4); GLOM FILT RATE Estimated 94.8 mL/min (>60); PHOSPHOROUS 2.9 mg/dL (2.5-4.6)
[2016-09-03 05:33] LABS: HEMATOCRIT 36.3 % (35.0-45.0); MEAN CELL VOLUME 87.9 FL (83-96); MEAN CORPUSCULAR HEMOGLOBIN 29.1 PG (28-34); MEAN CORPUSCULAR HGB CONC 33.1 g/dL (30-36); MEAN PLATELET VOLUME 9.3 FL (6.5-11.5); RED BLOOD COUNT 4.13 X10e (3.90-5.30); RED CELL DISTRIBUTION WIDTH 13.3 % (11.0-15.5); WHITE BLOOD COUNT 16.7 X10e3 (4.0-10.5)
[2016-09-03 06:26] LABS: ALBUMIN SERUM 2.4 g/dL (3.5-5.0); ALKALINE PHOSPHATASE 96 U/L (32-92); ALT (SGPT) 30 U/L (10-40); AMYLASE 160 U/L (0-46); AST (SGOT) 31 U/L (10-42); BILIRUBIN,TOTAL 0.3 mg/dL (0.2-2.0); CALCIUM SERUM 7.6 mg/dL (8.4-10.2); CARBON DIOXIDE 24 mmol/L (22-31); CHLORIDE 110 mmol/L (100-111); CREATININE SERUM 0.6 mg/dL (0.6-1.4); GLOM FILT RATE Estimated 99.8 mL/min (>60); GLUCOSE FASTING 159 mg/dL (70-110); LIPASE 46 U/L (22-51); SODIUM 140 mmol/L (135-145)
[2016-09-03 06:34] LABS: BLOOD UREA NITROGEN <5 mg/dL (9-23); BUN/CREATININE RATIO 8.33
[2016-09-03 06:35] LABS: POTASSIUM 2.7 mmol/L (3.5-5.1)
[2016-09-03 09:49] LABS: ARTERIAL BLD GAS O2 SATURATION 93.7 % (90.0-100.0); ARTERIAL BLOOD GAS HCO3 24.4 mmol/L; ARTERIAL BLOOD GAS MET HB 0.8 %sat (0.0-2.0); ARTERIAL BLOOD GAS PCO2 35.1 mmHg (35.0-45.0)
[2016-09-03 09:50] LABS: ARTERIAL BLOOD GAS ART SITE LEFT BRACHIAL; ARTERIAL BLOOD GAS PO2 64.8 mmHg (80.0-100); ARTERIAL DRAW? YES
[2016-09-03 20:00] LABS: URINE APPEARANCE CLEAR; URINE BILIRUBIN NEG (NEG); URINE BLOOD TRACE (NEG); URINE COLOR YELLOW; URINE GLUCOSE NEG (NEG); URINE KETONE NEG (NEG); URINE LEUKOCYTE ESTERASE NEG (NEG); URINE NITRATE NEG (NEG); URINE PH 7.5 (5-8); URINE PROTEIN 1+ (NEG); URINE SPECIFIC GRAVITY 1.015 (1.003-1.035); URINE UROBILINOGEN 0.2 MG/DL (NEG)
[2016-09-03 20:02] LABS: URINE BACTERIA AUWI NEG (NEGATIVE); URINE SQUAMOUS EPITHELIAL CELL NONE SEEN /[HPF]; UWBCS1 AUWI 0-2 (0-5)
[2016-09-04 07:03] LABS: HEMATOCRIT 36.4 % (35.0-45.0); MEAN CELL VOLUME 88.2 FL (83-96); MEAN CORPUSCULAR HEMOGLOBIN 29.1 PG (28-34); MEAN PLATELET VOLUME 8.8 FL (6.5-11.5); RED BLOOD COUNT 4.13 X10e (3.90-5.30); RED CELL DISTRIBUTION WIDTH 13.6 % (11.0-15.5); WHITE BLOOD COUNT 15.3 X10e3 (4.0-10.5)
[2016-09-04 08:00] LABS: ALBUMIN SERUM 2.3 g/dL (3.5-5.0); BILIRUBIN, DIRECT 0.2 mg/dL (0.0-0.2); BILIRUBIN,INDIRECT 0.7 mg/dL (0.0-0.9); BILIRUBIN,TOTAL 0.9 mg/dL (0.2-2.0); MAGNESIUM 1.7 mg/dL (1.6-3.0); PHOSPHOROUS 2.4 mg/dL (2.5-4.6); PROTEIN TOTAL SERUM 4.7 g/dL (6.0-8.3)
[2016-09-04 08:05] LABS: ALBUMIN SERUM 2.4 g/dL (3.5-5.0); BILIRUBIN,TOTAL 1.1 mg/dL (0.2-2.0); BUN/CREATININE RATIO 8.33; CALCIUM SERUM 7.9 mg/dL (8.4-10.2); CREATININE SERUM 0.6 mg/dL (0.6-1.4); GLOM FILT RATE Estimated 99.8 mL/min (>60); PROTEIN TOTAL SERUM 5.2 g/dL (6.0-8.3)
[2016-09-04 08:11] LABS: POTASSIUM 2.8 mmol/L (3.5-5.1)
[2016-09-05 05:45] LABS: HEMATOCRIT 36.1 % (35.0-45.0); HEMOGLOBIN 11.7 gm/dL (12.0-16.0); MEAN CELL VOLUME 89.1 FL (83-96); MEAN CORPUSCULAR HGB CONC 32.5 g/dL (30-36); MEAN PLATELET VOLUME 9.2 FL (6.5-11.5); RED BLOOD COUNT 4.05 X10e (3.90-5.30); RED CELL DISTRIBUTION WIDTH 13.7 % (11.0-15.5); WHITE BLOOD COUNT 15.8 X10e3 (4.0-10.5)
[2016-09-05 06:44] LABS: ALBUMIN SERUM 2.3 g/dL (3.5-5.0); CALCIUM SERUM 8.1 mg/dL (8.4-10.2); CREATININE SERUM 0.5 mg/dL (0.6-1.4); MAGNESIUM 1.7 mg/dL (1.6-3.0); POTASSIUM 3.9 mmol/L (3.5-5.1); PROTEIN TOTAL SERUM 4.9 g/dL (6.0-8.3)
[2016-09-06 05:33] LABS: HEMATOCRIT 33.1 % (35.0-45.0); MEAN CELL VOLUME 87.4 FL (83-96); MEAN CORPUSCULAR HEMOGLOBIN 29.2 PG (28-34); MEAN CORPUSCULAR HGB CONC 33.4 g/dL (30-36); MEAN PLATELET VOLUME 8.6 FL (6.5-11.5); RED BLOOD COUNT 3.78 X10e (3.90-5.30); RED CELL DISTRIBUTION WIDTH 13.7 % (11.0-15.5); WHITE BLOOD COUNT 12.7 X10e3 (4.0-10.5)
[2016-09-06 06:10] LABS: ALBUMIN SERUM 2.4 g/dL (3.5-5.0); BILIRUBIN,TOTAL 0.9 mg/dL (0.2-2.0); BUN/CREATININE RATIO 13.33; CALCIUM SERUM 7.8 mg/dL (8.4-10.2); CREATININE SERUM 0.6 mg/dL (0.6-1.4); GLOM FILT RATE Estimated 99.8 mL/min (>60); MAGNESIUM 1.9 mg/dL (1.6-3.0); PHOSPHOROUS 3.3 mg/dL (2.5-4.6); POTASSIUM 3.4 mmol/L (3.5-5.1); PROTEIN TOTAL SERUM 5.4 g/dL (6.0-8.3)
[2016-09-07 05:46] LABS: HEMATOCRIT 34.2 % (35.0-45.0); HEMOGLOBIN 11.3 gm/dL (12.0-16.0); MEAN CELL VOLUME 88.1 FL (83-96); MEAN CORPUSCULAR HEMOGLOBIN 29.1 PG (28-34); MEAN PLATELET VOLUME 8.5 FL (6.5-11.5); RED BLOOD COUNT 3.89 X10e (3.90-5.30); RED CELL DISTRIBUTION WIDTH 13.7 % (11.0-15.5); WHITE BLOOD COUNT 13.1 X10e3 (4.0-10.5)
[2016-09-07 06:28] LABS: ALBUMIN SERUM 2.6 g/dL (3.5-5.0); BILIRUBIN,TOTAL 0.8 mg/dL (0.2-2.0); CALCIUM SERUM 8.2 mg/dL (8.4-10.2); CREATININE SERUM 0.5 mg/dL (0.6-1.4); PROTEIN TOTAL SERUM 5.9 g/dL (6.0-8.3)
[2016-09-07 17:06] LABS: URIC ACID 1.1 mg/dL (2.6-7.2)
[2016-09-07 17:27] LABS: PROCALCITONIN 0.26 NG/ML
[2016-09-08 06:25] LABS: HEMATOCRIT 31.5 % (35.0-45.0); HEMOGLOBIN 10.3 gm/dL (12.0-16.0); MEAN CELL VOLUME 89.2 FL (83-96); MEAN CORPUSCULAR HEMOGLOBIN 29.2 PG (28-34); MEAN CORPUSCULAR HGB CONC 32.7 g/dL (30-36); MEAN PLATELET VOLUME 8.9 FL (6.5-11.5); RED BLOOD COUNT 3.53 X10e (3.90-5.30); WHITE BLOOD COUNT 13.5 X10e3 (4.0-10.5)
[2016-09-08 07:50] LABS: ALBUMIN SERUM 2.5 g/dL (3.5-5.0); BILIRUBIN,TOTAL 0.6 mg/dL (0.2-2.0); CALCIUM SERUM 8.4 mg/dL (8.4-10.2); CREATININE SERUM 0.6 mg/dL (0.6-1.4); GLOM FILT RATE Estimated 99.8 mL/min (>60); POTASSIUM 4.7 mmol/L (3.5-5.1); PROTEIN TOTAL SERUM 5.3 g/dL (6.0-8.3)
[2016-09-09 05:34] LABS: HEMATOCRIT 32.5 % (35.0-45.0); HEMOGLOBIN 10.5 gm/dL (12.0-16.0); MEAN CELL VOLUME 89.1 FL (83-96); MEAN CORPUSCULAR HEMOGLOBIN 28.9 PG (28-34); MEAN CORPUSCULAR HGB CONC 32.4 g/dL (30-36); MEAN PLATELET VOLUME 8.9 FL (6.5-11.5); RED BLOOD COUNT 3.65 X10e (3.90-5.30); RED CELL DISTRIBUTION WIDTH 13.8 % (11.0-15.5); WHITE BLOOD COUNT 14.4 X10e3 (4.0-10.5)
[2016-09-09 06:14] LABS: ALBUMIN SERUM 2.8 g/dL (3.5-5.0); BILIRUBIN,TOTAL 0.7 mg/dL (0.2-2.0); BUN/CREATININE RATIO 11.66; CALCIUM SERUM 8.4 mg/dL (8.4-10.2); CREATININE SERUM 0.6 mg/dL (0.6-1.4); GLOM FILT RATE Estimated 99.8 mL/min (>60); POTASSIUM 3.6 mmol/L (3.5-5.1); PROTEIN TOTAL SERUM 6.2 g/dL (6.0-8.3)
[2016-09-09 12:04] LABS: URINE APPEARANCE CLEAR; URINE BILIRUBIN NEG (NEG); URINE BLOOD NEG (NEG); URINE COLOR YELLOW; URINE GLUCOSE NEG (NEG); URINE KETONE NEG (NEG); URINE LEUKOCYTE ESTERASE NEG (NEG); URINE NITRATE NEG (NEG); URINE PROTEIN NEG (NEG); URINE SPECIFIC GRAVITY 1.005 (1.003-1.035); URINE UROBILINOGEN 0.2 MG/DL (NEG)
[2016-09-10 05:26] LABS: HEMATOCRIT 31.4 % (35.0-45.0); HEMOGLOBIN 10.4 gm/dL (12.0-16.0); MEAN CELL VOLUME 88.2 FL (83-96); MEAN CORPUSCULAR HEMOGLOBIN 29.2 PG (28-34); MEAN CORPUSCULAR HGB CONC 33.1 g/dL (30-36); MEAN PLATELET VOLUME 8.4 FL (6.5-11.5); RED BLOOD COUNT 3.56 X10e (3.90-5.30); RED CELL DISTRIBUTION WIDTH 13.7 % (11.0-15.5)
[2016-09-10 06:22] LABS: CALCIUM SERUM 8.4 mg/dL (8.4-10.2); CREATININE SERUM 0.7 mg/dL (0.6-1.4); GLOM FILT RATE Estimated 94.8 mL/min (>60); MAGNESIUM 2.2 mg/dL (1.6-3.0); POTASSIUM 3.9 mmol/L (3.5-5.1)
[2016-09-11 07:02] LABS: HEMATOCRIT 32.1 % (35.0-45.0); HEMOGLOBIN 10.6 gm/dL (12.0-16.0); MEAN CELL VOLUME 88.8 FL (83-96); MEAN CORPUSCULAR HEMOGLOBIN 29.4 PG (28-34); MEAN CORPUSCULAR HGB CONC 33.1 g/dL (30-36); MEAN PLATELET VOLUME 9.2 FL (6.5-11.5); RED BLOOD COUNT 3.62 X10e (3.90-5.30); RED CELL DISTRIBUTION WIDTH 13.9 % (11.0-15.5); WHITE BLOOD COUNT 9.8 X10e3 (4.0-10.5)
[2016-09-11 07:41] LABS: ALBUMIN SERUM 2.8 g/dL (3.5-5.0); BILIRUBIN,TOTAL 0.5 mg/dL (0.2-2.0); CALCIUM SERUM 8.5 mg/dL (8.4-10.2); CREATININE SERUM 0.8 mg/dL (0.6-1.4); GLOM FILT RATE Estimated 80.8 mL/min (>60); MAGNESIUM 2.1 mg/dL (1.6-3.0); POTASSIUM 4.4 mmol/L (3.5-5.1); PROTEIN TOTAL SERUM 5.8 g/dL (6.0-8.3)
[2016-09-12 05:55] LABS: HEMATOCRIT 31.4 % (35.0-45.0); HEMOGLOBIN 10.3 gm/dL (12.0-16.0); MEAN CELL VOLUME 88.9 FL (83-96); MEAN CORPUSCULAR HEMOGLOBIN 29.3 PG (28-34); MEAN CORPUSCULAR HGB CONC 32.9 g/dL (30-36); MEAN PLATELET VOLUME 8.7 FL (6.5-11.5); RED BLOOD COUNT 3.53 X10e (3.90-5.30); WHITE BLOOD COUNT 8.6 X10e3 (4.0-10.5)
[2016-09-12 06:54] LABS: ALBUMIN SERUM 2.9 g/dL (3.5-5.0); BILIRUBIN,TOTAL 0.5 mg/dL (0.2-2.0); BUN/CREATININE RATIO 11.42; CALCIUM SERUM 8.5 mg/dL (8.4-10.2); CREATININE SERUM 0.7 mg/dL (0.6-1.4); GLOM FILT RATE Estimated 94.8 mL/min (>60); POTASSIUM 4.3 mmol/L (3.5-5.1); PROTEIN TOTAL SERUM 6.2 g/dL (6.0-8.3)
[2016-09-13 06:38] LABS: HEMATOCRIT 33.5 % (35.0-45.0); HEMOGLOBIN 11.1 gm/dL (12.0-16.0); MEAN CELL VOLUME 88.4 FL (83-96); MEAN CORPUSCULAR HEMOGLOBIN 29.4 PG (28-34); MEAN CORPUSCULAR HGB CONC 33.3 g/dL (30-36); MEAN PLATELET VOLUME 8.2 FL (6.5-11.5); RED BLOOD COUNT 3.79 X10e (3.90-5.30); RED CELL DISTRIBUTION WIDTH 13.9 % (11.0-15.5); WHITE BLOOD COUNT 5.7 X10e3 (4.0-10.5)
[2016-09-13 07:11] LABS: ALBUMIN SERUM 3.1 g/dL (3.5-5.0); BILIRUBIN,TOTAL 0.8 mg/dL (0.2-2.0); CALCIUM SERUM 8.4 mg/dL (8.4-10.2); CREATININE SERUM 0.7 mg/dL (0.6-1.4); GLOM FILT RATE Estimated 94.8 mL/min (>60); MAGNESIUM 2.1 mg/dL (1.6-3.0); POTASSIUM 4.5 mmol/L (3.5-5.1); PROTEIN TOTAL SERUM 6.2 g/dL (6.0-8.3)
[2016-09-13] MEDS ORDERED: ACETAMINOPHEN PO (12:53)
[2016-09-13] MEDS ORDERED: PERCOCET 5/321 UDTAB PO (12:55)
[2016-10-04] MEDS ORDERED: NORCO PO (14:58)
[2016-10-05] MEDS ORDERED: ADVAIR 100-501 EACH INH (06:20)
[2016-10-05] MEDS ORDERED: TOPAMAX (06:20)
== END 2016-09-13 14:15 | disposition home or self-care (01) | DRG 871 ==
LOC: CED 13:48 → C5C 20:40 → CED 20:40 → CEDOF 20:40 → C5C 21:00 → CEDOF 21:00 → C5C 08-31 00:58 → CEDOF 08-31 00:58 → C5C 08-31 00:58 → CEDOF 08-31 11:25 → C5C 08-31 11:25
PROVIDERS: Emergency Medicine; Family Medicine; Internal Medicine; Surgery
PROC: 02HV33Z Insertion of Infusion Device into Superior Vena Cava, Percutaneous Approach (ICD-10-PCS; principal; 2016-09-01)
PROC: B518YZA Fluoroscopy of Superior Vena Cava using Other Contrast, Guidance (ICD-10-PCS; 2016-09-01)
PROC: B548ZZA Ultrasonography of Superior Vena Cava, Guidance (ICD-10-PCS; 2016-09-01)
PROC: 3E0436Z Introduction of Nutritional Substance into Central Vein, Percutaneous Approach (ICD-10-PCS; 2016-09-03)
PROC: B32TYZZ Computerized Tomography (CT Scan) of Left Pulmonary Artery using Other Contrast (ICD-10-PCS; 2016-09-04)
PROC: B32SYZZ Computerized Tomography (CT Scan) of Right Pulmonary Artery using Other Contrast (ICD-10-PCS; 2016-09-04)
DX: A41.9 Sepsis, unspecified organism (principal); K85.90 Acute pancreatitis without necrosis or infection, unspecified; J96.01 Acute respiratory failure with hypoxia; E43 Unspecified severe protein-calorie malnutrition; K51.00 Ulcerative (chronic) pancolitis without complications; K83.8 Other specified diseases of biliary tract; E83.39 Other disorders of phosphorus metabolism; E83.42 Hypomagnesemia; G43.909 Migraine, unspecified, not intractable, without status migrainosus; M79.7 Fibromyalgia; E78.5 Hyperlipidemia, unspecified; K29.80 Duodenitis without bleeding; G89.4 Chronic pain syndrome; Z87.11 Personal history of peptic ulcer disease; Z86.010 Personal history of colon polyps; Z90.710 Acquired absence of both cervix and uterus; Z68.26 Body mass index [BMI] 26.0-26.9, adult; E87.6 Hypokalemia
CPT/HCPCS: 36415; 36600; 71020; 71275; 74177; 76937; 77001; 80048; 80053; 80061; 80076; 81003; 82150; 82308; 82803; 82947; 83605; 83690; 83735; 84100; 84132; 84134; 84478; 84550; 85025; 85027; 85610; 85730; 87040; 87045; 87427; 87493; 87899; 89190; 94640; 94760; 96361; 96374; 96375; 97116; 97161; 97165; 97530; 99285; C1751; C9113; J0295; J1170; J1200; J1650; J2405; J2543; J2997; J3370; J3475; J3480; Q9967

== ENCOUNTER → 2016-08-30 | Day surgery (SDC) | payer OTHER ==
[~2016-08-30] MED LIST changes: +ACETAMINOPHEN PO; +ADVAIR 100-501 EACH INH; +FIORINAL 50-321 EACH PO; +METRONIDAZOLE PO; +NORCO PO; +PERCOCET 5/321 UDTAB PO
== END | disposition home or self-care (01) ==
LOC: COPS 06:44
DX: K29.50 Unspecified chronic gastritis without bleeding (principal); K25.9 Gastric ulcer, unspecified as acute or chronic, without hemorrhage or perforation; K44.9 Diaphragmatic hernia without obstruction or gangrene; J45.909 Unspecified asthma, uncomplicated; K21.9 Gastro-esophageal reflux disease without esophagitis; Z87.01 Personal history of pneumonia (recurrent); Z87.11 Personal history of peptic ulcer disease; Z87.442 Personal history of urinary calculi; Z88.8 Allergy status to other drugs, medicaments and biological substances; Z79.899 Other long term (current) drug therapy; Z90.49 Acquired absence of other specified parts of digestive tract; Z90.710 Acquired absence of both cervix and uterus; Z98.51 Tubal ligation status
CPT/HCPCS: 76000; 88305; 88312; J1610; J2250

== ENCOUNTER → 2016-10-05 | Day surgery (SDC) | payer OTHER ==
[~2016-10-05] MED LIST changes: +ACETAMINOPHEN PO; +ADVAIR 100-501 EACH INH; +NORCO PO; +PERCOCET 5/321 UDTAB PO
--- NOTE | ~2016-10-05 | OR ---
Unit #: [id number] #: [id number] Patient: MADAN FLORES [id number] [address] [address] [id number] O MR#: [id number] NAME: MADAN FLORES ROOM: Date of Procedure: 10/05/2016 Admission Date: 10/05/2016 Surgeon: Rodri Vazquez M.D. : 1955 Attending Physician: Rodri Vazquez M.D. Primary Care Physician: Mark Ball M.D. OPERATIVE REPORT PROCEDURES PERFORMED Colonoscopy with biopsy and colonoscopy with snare polypectomy. INDICATIONS FOR PROCEDURE A 61-year-old with abdominal pain, generalized. CAT scan showing significant colitis, was treated in the hospital with antibiotics. Symptoms have since improved, undergoing colonoscopy for evaluation. MEDICATIONS Monitored anesthesia. POSTOPERATIVE FINDINGS 1. No active colitis was seen throughout. The colon mucosa was normal and healthy. Random biopsies were taken. 2. Terminal ileum was normal also. 3. 8 to 10 mm polyp, sigmoid colon, snared with hot snare polypectomy. Hemoclip was placed of the polypectomy site. 4. Small hemorrhoids. PLAN 1. Follow up on pathology report. 2. Symptomatic treatment. DESCRIPTION OF PROCEDURE The patient was explained of the procedure, risks, and benefits along with risks and benefits of anesthesia. She was brought to the endoscopy room. Propofol anesthesia was given. Rectal exam was done, which was normal. Colonoscope was lubricated, passed up the rectum, advanced under direct vision all the way to the cecum. Cecum was identified by ileocecal valve and appendiceal orifice. I then started to pull the scope out carefully looking. Mucosa was normal and healthy. Random biopsy was taken. Polyp in sigmoid colon was snared and sent for histopathology. Hemoclip was placed on the polypectomy site. I retroflexed in the rectum, small hemorrhoids noted. Gently, the scope was pulled out. She tolerated it well. No major complications were seen. Dictated by... Joshua LeyvaJ/lenil Unit #: [id number] #: [id number] Patient: MADAN FLORES TD: 10/05/2016 14:57 JOB #: [id number] OPERATIVE REPORT Page 1 of 1 X Rodri Vazquez MD PROCEDURE OPERATIVE NOTE
== END | disposition home or self-care (01) ==
LOC: COPS 05:56
DX: D12.5 Benign neoplasm of sigmoid colon (principal); K64.9 Unspecified hemorrhoids; K21.9 Gastro-esophageal reflux disease without esophagitis; J45.909 Unspecified asthma, uncomplicated; G40.909 Epilepsy, unspecified, not intractable, without status epilepticus; Z87.442 Personal history of urinary calculi; Z87.01 Personal history of pneumonia (recurrent); Z88.0 Allergy status to penicillin; Z88.8 Allergy status to other drugs, medicaments and biological substances; Z79.899 Other long term (current) drug therapy; Z90.49 Acquired absence of other specified parts of digestive tract; Z90.710 Acquired absence of both cervix and uterus; Z98.51 Tubal ligation status; Z98.1 Arthrodesis status; Z98.890 Other specified postprocedural states
CPT/HCPCS: 88305

== ENCOUNTER 2016-11-04 15:00 | Inpatient (IN) | payer OTHER ==
[~2016-11-04] VITALS: Ht 165.1 cm; Wt 61.2 kg
--- NOTE | ~2016-11-04 | DS ---
Unit #: [id number] #: [id number] Patient: MADAN FLORES [id number] [facility] [address] [place] [address] [id number] I MR#: [id number] NAME: MADAN FLORES. ROOM: [facility] Age: 61 Sex: F Admission Date: 11/04/2016 : 1955 Discharge Date: 11/07/2016 Attending Physician: Luke Sexton M.D. Primary Care Physician: Mark Ball M.D. DISCHARGE SUMMARY REASON FOR ADMISSION Depression. DIAGNOSTIC STUDIES LABORATORY RESULTS: Unremarkable. HOSPITAL COURSE The patient was admitted to inpatient unit on 11/04/2016 and discharged on 11/07/2016. The patient was treated on the inpatient unit with medication management, expressive therapy, psychoeducation, and psychotherapy. The patient was compliant. Denied any suicidal or homicidal ideation throughout her stay. Affect bright, mood good, maintained safe behavior. DISCHARGE MEDICATIONS Vistaril 25 mg three times a day for anxiety, Vistaril 50 mg at bedtime for sleep. DISCHARGE DIAGNOSES Psychiatric: Major depressive disorder, recurrent, severe, F33.2. Anxiety disorder, not otherwise specified, 40.01. Post-traumatic stress disorder, chronic, 41.9. Secondary Diagnosis: Deferred. Medical Diagnosis: Colitis, fibromyalgia, migraine headaches, hyperlipidemia, hypertension. Stressors: Psychosocial stressor. DISCHARGE INSTRUCTIONS The patient is to follow up in outpatient clinic as per criminal justice social worker. CONDITION ON DISCHARGE The patient is pleasant and cooperative. Denied any psychotic symptom or any suicidal ideation. PROGNOSIS Guarded. DIET AND ACTIVITY As tolerated. Unit #: [id number] #: [id number] Patient: MADAN FLORES Dictated by... Joshua Quinones/yuliya TD: 11/08/2016 03:35 JOB #: [id number] DISCHARGE SUMMARY Page 1 of 1 X Luke Sexton MD X DISCHARGE SUMMARY
--- NOTE | ~2016-11-04 | PN ---
Unit #: [id number] #: [id number] Patient: MADAN FLORES [id number] [facility] [address] [place] [address] [id number] I MR#: [id number] NAME: MADAN FLORES. ROOM: [facility] Age: 61 Sex: F Admission Date: 11/04/2016 : 1955 Attending Physician: Luke Sexton M.D. Admitting Physician: Luke Sexton M.D. Primary Care Physician: Joshua Cantor PROGRESS NOTES DATE OF SERVICE 11/05/2016 DISCUSSION Ms. Tatum is a 61-year-old female. Patient interviewed, chart reviewed. Obtained information from nursing staff. Patient compliant and cooperative. Mood was anxious, nervous, reported having problems with the anxiety with mood lability, trouble sleeping. Complete review of systems unremarkable. MENTAL STATUS EXAMINATION General appearance, patient dressed casually. Attention span and concentration fair. Oriented to time, place and person. Mood and affect seizure disorder. Speech monotone. Thought process concrete. Patient denied any thoughts of harming self or others but guarded. Recent and remote memory poor. Insight and judgement poor. DIAGNOSES Major depressive disorder recurrent severe. ASSESSMENT/PLAN Advise to continue with current medication with a plan to add trazodone 50 mg at bedtime for sleep and vistaril 25 mg three times a day for anxiety. if needed consider further adjustment of medication. Dictated by... Joshua Quinones/gilmar TD: 11/06/2016 23:41 JOB #: [id number] Unit #: [id number] #: [id number] Patient: MADAN FLORES JAE PROGRESS NOTES Page 1 of 1 X Luke Sexton MD PROGRESS NOTE
--- NOTE | ~2016-11-04 | PA ---
Unit #: [id number] #: [id number] Patient: MADAN FLORES [id number] [facility] [address] [place] [address] [id number] MR#: [id number] NAME: MADAN FLORES. ROOM: [facility] Age: 61 Sex: F Admission Date: 11/04/2016 : 1955 Date of Assessment: 11/05/2016 Attending Physician: Luke Sexton M.D. Admitting Physician: Luke Sexton M.D. Primary Care Physician: Mark Ball M.D. PSYCHIATRIC ASSESSMENT INFORMANTS The patient reliability, fair informant and chart reliability, good. CHIEF COMPLAINT Depression and suicidal ideation. HISTORY OF PRESENT ILLNESS Ms. Tatum is a 61-year-old female, presented due to the above-mentioned complaint. The patient received outpatient services through [facility] and has an outpatient therapist, Dr. Merrill and associate. Lives at home with her and daughter, 18 and son, 17. The patient reported she was referred by outpatient therapist. The patient reports that she did have suicidal ideation earlier in the day to drive her into a wall. The patient reports that she just left her house to get away from things. The patient reports feeling of hopelessness and worthlessness, energy issue, and insomnia. The patient reports passive suicidal thoughts over the last several days and racing thoughts. The patient reports tearful, anxious, nervous, sad, and depressed. Needing inpatient admission at this time for psychiatric stabilization. The patient denied any use of any drugs or alcohol. PAST PSYCHIATRIC HISTORY Remarkable for history of outpatient treatment. No history of any suicide attempt earlier or any inpatient treatment. FAMILY HISTORY AND SOCIAL HISTORY The patient has a good support system. No history of abuse. No legal charges. History of mental illness in the maternal side of the family and in mother depression. MEDICAL HISTORY Remarkable for history of fibromyalgia, migraine headache, hyperlipidemia, hypertension, and history of colitis. Musculoskeletal; muscle strength and tone, no atrophy or abnormal movement. Gait normal. MEDICATION HISTORY The patient is on Cymbalta, Lyrica, and butalbital. ALLERGIES No known drug allergies. SUBSTANCE ABUSE HISTORY None. Unit #: [id number] #: [id number] Patient: MADAN FLORES REVIEW OF SYSTEMS HEENT: Eyes, clear. Ears, nose, mouth, and throat; clear. CARDIOVASCULAR: Unremarkable. RESPIRATORY: Unremarkable. GI: Unremarkable. : Unremarkable. SKIN: Unremarkable. LYMPH NODE: Unremarkable. NEUROLOGIC: Unremarkable. ENDOCRINE: Unremarkable. HEMATOLOGIC: Unremarkable. ALLERGIC/IMMUNOLOGIC: Unremarkable. MUSCULOSKELETAL: Muscle strength and tone, no atrophy or abnormal movement. Gait normal. MENTAL STATUS EXAMINATION CONSTITUTIONAL: Measurement of vital signs; temperature 97.7, heart rate 107, respiratory rate 18, and blood pressure 155/97. Height 5 feet 5 inches and weight 135 pounds. GENERAL APPEARANCE: The patient dressed casually. The patient did not show any facial deformity. MUSCULOSKELETAL: Please see above. PSYCHIATRIC EXAMINATION Description of speech; regular rate, normal volume, normal articulation, and coherent. Description of thought process, goal directed. Description of association, intact. Description of abnormal psychotic thinking; the patient denied any hallucinations or delusions, but mood lability, sad, and depressed. Description of the patient's judgment: Concerning everyday activity, poor. Social situation, poor. Concerning psychiatric condition, poor. Complete mental status examination; oriented in time, place, and person. Recent and remote memory, fair. Attention span and concentration, fair. Language, intact. Fund of knowledge, fair. Vocabulary, fair. Mood and affect, sad and dysphoric. Insight and judgment, fair to poor. ASSETS AND LIABILITIES Assets, the patient is articulate and able to take care of her ADL. Liability, history of depression and anxiety. ADMITTING DIAGNOSES Psychiatric: Major depressive disorder, recurrent, severe, F33.2; anxiety disorder, not otherwise specified, F40.01; and posttraumatic stress disorder, chronic, F41.9. Secondary diagnosis: Deferred. Medical diagnoses: Colitis, fibromyalgia, migraine headache, hyperlipidemia, and hypertension. Stressors: Psychosocial stressors. PSYCHIATRIC PLAN AND TREATMENT GOAL AND DISCHARGE PLAN 1. Advised to admit the patient on the inpatient unit. 2. Ordered labs; CBC, CMP, UA, and UDS. 3. Advised to continue with home medication with a plan to add trazodone Unit #: [id number] #: [id number] Patient: MADAN FLORES A 50 mg at bedtime and Vistaril for anxiety. The patient to attend group therapy, individual therapy, and structured milieu. Treatment goal to attain euthymic mood, gain insight into her problem, and learn coping skills. DISCHARGE PLAN Plan to stabilize the patient and consider followup in outpatient program. ESTIMATED LENGTH OF STAY 3 to 5 days. Dictated by... Joshua Quinones/yuliya TD: 11/05/2016 16:05 JOB #: [id number] PSYCHIATRIC ASSESSMENT Page 1 of 1 X Luke Sexton MD X PSYCHIATRIC ASSESSMENT
--- NOTE | ~2016-11-04 | PN ---
Unit #: [id number] #: [id number] Patient: MADAN FLORES [id number] [facility] [address] [place] [address] [id number] MR#: [id number] NAME: MADAN FLORES. ROOM: [facility] Age: 61 Sex: F Admission Date: 11/04/2016 : 1955 Attending Physician: Luke Sexton M.D. Admitting Physician: Luke Sexton M.D. Primary Care Physician: Mark Ball M.D. PEASUSANNE PROGRESS NOTES DATE 11/06/2016 DISCUSSION Ms. Tatum is a 61-year-old female seen on 11/06/2016. Patient interviewed. Chart reviewed. Obtained information from nursing staff. Patient was pleasant and cooperative. Reports that she is feeling better. Denied any suicidal or homicidal ideation. Compliant with medication. Patient was admitted with suicidal ideation. Patient was able to participate in group. Maintain safe behavior. No side effects from medication. Complete review of system unremarkable. MENTAL STATUS EXAMINATION General appearance, patient dressed casually. Attention span, concentration fair. Oriented in time, place and person. Mood and affect sad, dysphoric. Speech monotone. Thought process concrete. Patient denied any thoughts of harming self or others. Recent and remote memory poor. Insight and judgement poor. DIAGNOSIS Major depressive disorder, recurrent, severe. ASSESSMENT/PLAN Advised to continue with current medication and therapeutic protocol. If needed, consider further adjustment of medication. Dictated by... Joshua Quinones/janelle TD: 11/07/2016 16:30 JOB #: [id number] Unit #: [id number] #: [id number] Patient: MADAN FLORES [facility] PROGRESS NOTES Page 1 of 1 X Luke Sexton MD X PROGRESS NOTE
--- NOTE | ~2016-11-04 | CO ---
Unit #: [id number] #: [id number] Patient: MADAN FLORES [id number] [facility] [address] [place] [address] [id number] MR#: [id number] NAME: MADAN FLORES. ROOM: [facility] Age: 61 Sex: F Admission Date: 11/04/2016 : 1955 Attending Physician: Luke Sexton M.D. Primary Care Physician: Mark Ball M.D. Consultation Date: 11/05/2016 CONSULTATION REPORT REASON FOR ADMISSION Acute psychiatric illness. HISTORY OF PRESENT ILLNESS The patient is a 61-year-old female, apparently got into an argument with her , began driving and had no clear plan, had questionable suicidal intent and was brought to [facility] for further evaluation after she discussed her overall level of care with her therapist over the phone. PAST MEDICAL HISTORY Hypertension, hyperlipidemia, prior history of colitis, pancreatitis, fibromyalgia, and history of migraine. PAST SURGICAL HISTORY As per chart review. HOME MEDICATIONS Cymbalta, Lyrica, and Fioricet. ALLERGIES As noted after chart review; penicillin, Lipitor, phenytoin, as well as naproxen. FAMILY HISTORY Mental illness and depression. Substance abuse, reviewed and negative. SOCIAL HISTORY No alcohol, tobacco, or illicit drug use. The patient currently is on methadone per her report on prescription, her last use was in 2015, not currently taking. REVIEW OF SYSTEMS Please see HPI. Twelve point otherwise negative except for those positive noted in the HPI. PHYSICAL EXAMINATION GENERAL: Awake, alert, oriented to person, place, and time. Well built, well nourished. Does not appear to be in any acute distress. VITAL SIGNS: Temperature 97.7, blood pressure 155/97, respiratory rate 18, and pulse 107. HEAD: Atraumatic. Normocephalic. EYES: Bilateral extraocular muscles are normal. Pupils equal, reactive to light and accommodation. Sclerae are normal. No jaundice. Unit #: [id number] #: [id number] Patient: MADAN FLORES NECK: Neck is supple. No neck rigidity. No thyromegaly. No carotid bruit. No JVD. Oral mucosa is moist. CHEST: Bilateral vesicular breathing. Clear to auscultation. No basilar rales. CARDIOVASCULAR: S1 and S2 normal. No murmur, no gallop, no rub. ABDOMEN: Soft, nontender. No organomegaly. Bowel sounds are normal. No hernia, no masses, no rebound, no guarding. EXTREMITIES: No pitting edema. No calf tenderness. Extremity pulses, including dorsalis pedis, have good volume. BACK: Normal spine curvature. No spine tenderness. No costovertebral angle tenderness. CUSTOMER EXPERT: Cranial nerves normal bilaterally. Motor function bilaterally symmetric and normal. Sensory system normal. SKIN: Warm and dry. INITIAL ASSESSMENT 1. Acute psychiatric inpatient admission. 2. Suicidal ideation. 3. Hypertension. 4. Hyperlipidemia. PLAN As per psychiatrist. Medical condition stable. Medical prognosis fair. There are no medical contraindications to the patient participating in activities while here at [facility]. Dictated by... Donny Silva M.D. MARYA/yuliya TD: 11/05/2016 18:22 JOB #: [id number] CONSULTATION REPORT Page 1 of 1 X Donny Silva MD X CONSULTATION REPORT
[2016-11-05 11:04] LABS: BASOPHIL% 0.4 % (0-2.5); EOSINOPHIL# 0.1 X10e3 (0-0.7); EOSINOPHIL% 1.1 % (0.0-7.0); HEMATOCRIT 41.7 % (35.0-45.0); HEMOGLOBIN 13.9 gm/dL (12.0-16.0); LYMPHOCYTE# 1.7 X10e3 (1.0-3.5); LYMPHOCYTE% 19.9 % (17.0-45.0); MEAN CELL VOLUME 89.2 FL (83-96); MEAN CORPUSCULAR HEMOGLOBIN 29.8 PG (28-34); MEAN CORPUSCULAR HGB CONC 33.4 g/dL (30-36); MONOCYTE# 0.6 X10e3 (0-1.0); MONOCYTE% 6.9 % (3.0-12.0); NEUTROPHIL# 5.9 X10e3 (1.5-7.1); NEUTROPHIL% 71.7 % (40-75); PLATELET COUNT 255 X10e3 (140-420); RED BLOOD COUNT 4.67 X10e (3.90-5.30); RED CELL DISTRIBUTION WIDTH 14.3 % (11.0-15.5); WHITE BLOOD COUNT 8.3 X10e3 (4.0-10.5)
[2016-11-05 11:06] LABS: URINE APPEARANCE CLEAR; URINE BILIRUBIN NEG (NEG); URINE BLOOD TRACE (NEG); URINE COLOR YELLOW; URINE GLUCOSE NEG (NEG); URINE KETONE 1+ (NEG); URINE LEUKOCYTE ESTERASE NEG (NEG); URINE NITRATE NEG (NEG); URINE PROTEIN NEG (NEG); URINE SPECIFIC GRAVITY 1.023 (1.003-1.035); URINE UROBILINOGEN 0.2 MG/DL (NEG)
[2016-11-05 11:07] LABS: DIFF IND NO
[2016-11-05 11:10] LABS: URINE BACTERIA AUWI NEG (NEGATIVE); URINE SQUAMOUS EPITHELIAL CELL NONE SEEN /[HPF]; UWBCS1 AUWI 0-2 (0-5)
[2016-11-05 11:42] LABS: AMPHETAMINE NEG (NEG); BARBITURATES POS (NEG); BENZODIAZEPINES NEG (NEG); COCAINE NEG (NEG); MARIJUANA NEG (NEG); OPIATES NEG (NEG); TRICYCLIC ANTIDEPRESSANTS NEG (NEG); U METHADONE NEG (NEG)
[2016-11-05 12:42] LABS: ALBUMIN SERUM 4.4 g/dL (3.5-5.0); BILIRUBIN,TOTAL 0.9 mg/dL (0.2-2.0); BUN/CREATININE RATIO 22.85; CALCIUM SERUM 9.7 mg/dL (8.4-10.2); CREATININE SERUM 0.7 mg/dL (0.6-1.4); GLOM FILT RATE Estimated 94.8 mL/min (>60); POTASSIUM 4.6 mmol/L (3.5-5.1); PROTEIN TOTAL SERUM 7.3 g/dL (6.0-8.3)
== END 2016-11-07 08:45 | disposition home or self-care (01) | DRG 885 ==
LOC: P2L 15:37
PROVIDERS: Psychiatry & Neurology Psychiatry
DX: F33.2 Major depressive disorder, recurrent severe without psychotic features (principal); I10 Essential (primary) hypertension; F41.9 Anxiety disorder, unspecified; F43.12 Post-traumatic stress disorder, chronic; F17.210 Nicotine dependence, cigarettes, uncomplicated; E78.5 Hyperlipidemia, unspecified; M79.7 Fibromyalgia
CPT/HCPCS: 80053; 80307; 81003; 85025